=== PATIENT | female | born 1995 | race Caucasian/White ===

== ENCOUNTER 2018-10-31 17:53 | Emergency (ER) | payer MEDICARE, OTHER ==
[~2018-10-31] VITALS: Ht 165.1 cm; Wt 74.4 kg
[2018-10-31 18:08] VITALS: Ht 165.1 cm; Wt 74.4 kg
--- NOTE | 2018-10-31 19:17 | ERD ---
ER Documentation Chief Complaint Chief Complaint Bleeding AVF HPI The patient is a 23-year-old female, presenting to the ER because of bleeding formed left upper extremity AV fistula around 12 PM after she had dialysis about 11:30 AM. Leading was able to stop with compression. She thinks that her and may be too high because her INR is 4.3 a few days ago, she stopped the Coumadin for a few days and just restarted the medication. He complains of vague chronic headache, denies blurred vision syncope, near syncope, fever, neck pain, chest pain, dyspnea, abdominal pain, vomiting, dysuria, diarrhea. She does not smoke nor drink Medical history: Chronic kidney disease on hemodialysis, history of endocarditis, hypertension Past surgical history: Left upper extremity AV fistula, aortic valve replacement in 2015 ROS All systems reviewed and are negative except as per history of present illness. Allergies Allergies: Coded Allergies: promethazine (Verified Allergy, Unknown, 10/31/18) Physical Exam Vitals Vital Signs Date Temp Pulse Resp B/P (MAP) Pulse Ox O2 O2 Flow FiO2 Time Delivery Rate 10/31/18 97.1 88 16 147/89 99 Room Air 22:01 (108) 10/31/18 96.9 95 17 155/90 99 18:08 (111) Physical Exam Const: No acute distress. Head: Atraumatic. Eyes: Normal Conjunctiva. ENT: Normal External Ears, Nose and Mouth. Neck: Full range of motion. No meningismus. Resp: Clear to auscultation bilaterally. Cardio: Regular rate and rhythm. Abd: Soft, non distended, normal bowel sounds, non tender. Skin: No petechiae or rashes. Back: No midline or flank tenderness. Ext: No cyanosis, or edema. Minimal bleeding at the left upper ext remity AV fistula puncture wound Neur: Awake and alert. No focal deficit Psych: Normal Mood and Affect. Result Diagram: 10/31/18195410/31/181954 Results 24 hrs Laboratory Tests Test 10/31/18 19:55 White Blood Count 8.3 10^3/ul Red Blood Count 3.77 10^6/ul Hemoglobin 11.5 g/dl Hematocrit 34.9 % Mean Corpuscular Volume 92.6 fl Mean Corpuscular Hemoglobin 30.5 pg Mean Corpuscular Hemoglobin Concent 33.0 g/dl Red Cell Distribution Width 11.9 % Platelet Count 196 10^3/UL Mean Platelet Volume 11.0 fl Immature Granulocytes % 0.400 % Neutrophils % 69.0 % Lymphocytes % 20.9 % Monocytes % 7.5 % Eosinophils % 1.7 % Basophils % 0.5 % Nucleated Red Blood Cells % 0.0 /100WBC Immature Granulocytes # 0.030 10^3/ul Neutrophils # 5.7 10^3/ul Lymphocytes # 1.7 10^3/ul Monocytes # 0.6 10^3/ul Eosinophils # 0.1 10^3/ul Basophils # 0.0 10^3/ul Nucleated Red Blood Cells # 0.0 10^3/ul Prothrombin Time 31.2 Sec Prothrombin Time Ratio 2.4 INR International Normalized Ratio 3.00 Activated Partial Thromboplast Time 51.8 Sec Sodium Level 144 mmol/L Potassium Level 4.6 mmol/L Chloride Level 96 mmol/L Carbon Dioxide Level 33 mmol/L Anion Gap 15 Blood Urea Nitrogen 52 mg/dl Creatinine 8.67 mg/dl Est Glomerular Filtrat Rate mL/min 6 mL/min Glucose Level 84 mg/dl Calcium Level 9.6 mg/dl Current Medications Medications Dose Sig/Julianne Start Time Status Last (Trade) Ordered Route PRN Stop Time Admin Dose Reason Admin 650 mg ONCE ONCE 10/31/18 DC 10/31/18 Acetaminophen PO 20:30 10/31/18 20:21 (Tylenol 20:31 Tab) Procedures/MDM EKG: Read by emergency physician Rate/Rhythm: Normal Sinus Rhythm 76 beats/min QRS, ST, T-waves: No ST elevation, no T inversion, LAE, LAD, LVH, prolonged QT Impression: Abnormal EKG MEDICAL MAKING DECISION: The patient is a 23-year-old female, presenting with bleeding from the AV fistula, it was dressed with Surgicel and Coban without any difficulty, is stable outpatient follow-up. She was treated with Tylenol and p.o. for her chronic headache with good response The differential diagnoses considered include but are not limited to subarachnoid hemorrhage, occult trauma, CVA, meningitis, encephalitis, hypertension, tension, migraine, cluster, narcotic withdrawal, cervical spine disease. Departure Diagnosis: Primary Impression: Hemorrhage of arteriovenous fistula Additional Impression: Anemia Condition: Good Comments I discussed the findings with the patient. I advised the patient to follow-up with vascular surgeon for her bleeding AV fistula in about 2-3 days, sooner if needed and return if any concern. Disclaimer: Inadvertent spelling and grammatical errors are likely due to EHR/dictation software use and do not reflect on the overall quality of patient care. Also, please note that the electronic time recorded on this note does not necessarily reflect the actual time of the patient encounter. MIRANDA WATTS MD Oct 31, 2018 19:17
[2018-10-31] MEDS ORDERED: ACETAMINOPHEN 325 MG TAB PO ONE (20:30)
[2018-10-31 22:01] VITALS: BP 147/89; PULSE 88; RESP 16
== END 2018-10-31 22:01 | disposition home or self-care (01) ==
LOC: E/R 17:53
DX: T82.838A Hemorrhage due to vascular prosthetic devices, implants and grafts, initial encounter (principal); I12.9 Hypertensive chronic kidney disease with stage 1 through stage 4 chronic kidney disease, or unspecified chronic kidney disease; N18.9 Chronic kidney disease, unspecified; D64.9 Anemia, unspecified; Y82.9 Unspecified medical devices associated with adverse incidents; Z99.2 Dependence on renal dialysis
CPT/HCPCS: 80048; 85025; 85610; 85730; 93005

== ENCOUNTER 2018-12-12 19:37 | Emergency (ER) | payer MEDICARE, OTHER ==
[~2018-12-12] VITALS: Wt 76.9 kg
[2018-12-12] MEDS ORDERED: METOCLOPRAMIDE 10 MG INJ IV STA (21:06)
[2018-12-12] MEDS ORDERED: ACETAMINOPHEN 500 MG TAB PO STA (21:34)
[2018-12-12] MEDS ORDERED: DIPHENHYDRAMINE 25 MG CAP PO ONE (22:00)
[2018-12-12] MEDS ORDERED: PHYTONADIONE (1 MG/ML PO SYG) PO SCH (22:07)
[2018-12-12] MEDS ORDERED: CETI10CA PO (22:08)
--- NOTE | 2018-12-12 22:19 | ERD ---
ER Documentation Chief Complaint Chief Complaint VICKERS, BRUISING, RASH, BLEEDING FROM AV FISTULA HPI 23-year-old female with a history of aortic valve replacement and ESRD on hemodialysis presenting with complaints of bleeding from her AV fistula site on her left upper extremity. She also complains of a frontal aching headache as well as increased bruising all over her body. She states that she gets headaches like this and bruising when her INR is too high. She denies any vomiting or diarrhea. No fevers or chills. No neck stiffness. Headache was gradual in onset and she has felt headaches like this before. Currently her h eadache is an 8 out of 10. She has not tried any medications at home for this. She also complains of atraumatic right shoulder pain that has been going on for several days, worse with movement of her arm. No associated numbness or tingling in her arm. No associated neck pain. She rates the pain as a 9 out of 10. She describes it as throbbing and aching. ROS All systems reviewed and are negative except as per history of present illness. Medications Home Meds Reported Medications Warfarin Sodium* (Coumadin*) 1 Mg Tablet, 3 MG PO DAILY, TAB 12/14/18 Cinacalcet* (Sensipar*) 90 Mg Tablet, 90 MG PO DAILY, TAB 12/14/18 Amlodipine Besylate* (Norvasc*) 5 Mg Tablet, 5 MG PO BID, TAB 12/14/18 Trazodone Hcl* (Desyrel*) 50 Mg Tablet, 50 MG PO QHS, #30 TAB 12/14/18 Sevelamer Hcl* (Renagel*) 800 Mg Tablet, 3200 MG PO WITH MEALS, TAB 12/14/18 Discontinued Scripts Cetirizine Hcl* (Zyrtec*) 10 Mg Capsule, 10 MG PO DAILY, #14 TAB Prov:EDWINA SINGER MD 12/12/18 Allergies Allergies: Coded Allergies: promethazine (Verified Allergy, Unknown, 12/14/18) PMhx/Soc History of Surgery: Yes (Aortic valve replacement x2) Hx Cardiac Disorders: Yes (Artificial valve) Hx Miscellaneous Medical Probl: Yes (HTN, kidney problem since , CKD on hemodialysis) Hx Alcohol Use: No Hx Substance Use: No Hx Tobacco Use: No Smoking Status: Never smoker FmHx Family History: No diabetes Physical Exam Vitals Vital Signs Date Temp Pulse Resp B/P (MAP) Pulse Ox O2 O2 Flow FiO2 Time Delivery Rate 12/12/18 75 18 129/80 98 Room Air 22:20 (96) 12/12/18 99.1 80 18 140/77 99 19:42 (98) Physical Exam Const: No acute distress Head: Atraumatic Eyes: Normal Conjunctiva, PERRLA, EOMI ENT: Normal External Ears, Nose and Mouth. No oropharyngeal bleeding noted. Neck: Full range of motion. No meningismus. Resp: Clear to auscultation bilaterally Cardio: Regular rate and rhythm, no murmurs. 2+ radial pulses bilaterally. Abd: Soft, non tender, non distended. Normal bowel sounds Skin: Scattered bruises on body. No petechiae or rashes Back: No midline or flank tenderness Ext: No cyanosis, or edema. Left upper extremity AV fistula with no active bleeding at this time. Right shoulder with somewhat limited range of motion secondary to pain. No joint effusion or deformities seen. No evidence of shoulder dislocation. All other joints without any swelling, erythema, or warmth. Full range of motion at all joints. Neur: Awake and alert, cranial nerves intact, normal speech, oriented x3. Strength and sensations intact in all 4 extremities. Normal gait. Psych: Normal Mood and Affect Result Diagram: 12/12/18202912/12/182029 Results 24 hrs Laboratory Tests Test 12/12/18 20:30 12/12/18 21:11 White Blood Count 7.3 10^3/ul Red Blood Count 3.63 10^6/ul Hemoglobin 10.7 g/dl Hematocrit 33.3 % Mean Corpuscular Volume 91.7 fl Mean Corpuscular Hemoglobin 29.5 pg Mean Corpuscular Hemoglobin Concent 32.1 g/dl Red Cell Distribution Width 12.4 % Platelet Count 251 10^3/UL Mean Platelet Volume 10.8 fl Immature Granulocytes % 0.300 % Neutrophils % 70.2 % Lymphocytes % 19.4 % Monocytes % 7.0 % Eosinophils % 2.5 % Basophils % 0.6 % Nucleated Red Blood Cells % 0.0 /100WBC Immature Granulocytes # 0.020 10^3/ul Neutrophils # 5.1 10^3/ul Lymphocytes # 1.4 10^3/ul Monocytes # 0.5 10^3/ul Eosinophils # 0.2 10^3/ul Basophils # 0.0 10^3/ul Nucleated Red Blood Cells # 0.0 10^3/ul Prothrombin Time 63.3 Sec Prothrombin Time Ratio 4.9 INR International Normalized Ratio 7.48 Activated Partial Thromboplast Time 91.8 Sec Sodium Level 141 mmol/L Potassium Level 4.2 mmol/L Chloride Level 97 mmol/L Carbon Dioxide Level 33 mmol/L Anion Gap 11 Blood Urea Nitrogen 44 mg/dl Creatinine 8.15 mg/dl Est Glomerular Filtrat Rate mL/min 6 mL/min Glucose Level 104 mg/dl Calcium Level 10.2 mg/dl POC Beta HCG, Qualitative NEGATIVE Current Medications Medications Dose Sig/Julianne Start Time Status Last (Trade) Ordered Route PRN Stop Time Admin Dose Reason Admin 10 mg ONCE STAT 12/12/18 DC 12/12/18 Metoclopramid IV 21:06 21:18 e HCl 12/12/18 21:07 (Reglan) 1,000 mg ONCE STAT 12/12/18 DC 12/12/18 Acetaminophen PO 21:34 21:44 (Tylenol 12/12/18 21:35 Tab) 25 mg ONCE ONCE 12/12/18 DC 12/12/18 Diphenhydrami PO 22:00 21:44 ne HCl 12/12/18 22:01 (Benadryl) 2.5 mg ONCE PO 12/12/18 DC 12/12/18 Phytonadione 22:07 22:17 (Vitamin K) 12/12/18 22:35 Procedures/MDM EMERGENT LABS AND DIAGNOSTIC STUDIES: Lab Results above were reviewed and interpreted by me. CBC: Mild anemia, no evidence of infection, thrombocytopenia, or thrombocytosis CMP: Evidence of chronic kidney disease with elevated BUN and creatinine. No evidence of clinically significant electrolyte abnormality, acidosis, renal failure, liver disease, or biliary obstruction Coags: INR is supratherapeutic, PTT significantly high as well, indicative of coagulopathy Initial Nursing notes reviewed. Previous Medical Records requested via the Electronic Health Record. EMERGENCY DEPARTMENT COURSE / MEDICAL DECISION MAKING: Patient is presenting with multiple complaints including headache, bruising, ble eding from AV fistula site that has now resolved, as well as right shoulder pain. Vitals are stable and she is neurovascularly intact on exam. She has no signs of active bleeding on my exam. Her labs did show an elevated INR. I did not do a CT of her head as she was neurologically intact and she has experienced headaches like this before from an elevated INR. I have a lower suspicion for acute intracranial hemorrhage. With regard to her right shoulder pain, exam did not reveal any evidence of joint effusion or septic joint. I do not suspect fracture or infiltrative bone disease. I do not think x-rays are indicated. For her elevated INR, as she is not having any active bleeding, I recommended stopping her Coumadin for several days until she follows up with her mechanical door repairer to get a repeat INR. She was also treated with vitamin K 2.5 mg orally. Strict return precautions were discussed with patient. Precautions regarding her elevated INR were given. Recommended Tylenol for her pain at home. Patient feels comfortable with this discharge plan. She will follow-up as instructed. Patient's blood pressure was elevated (>120/80) but appears stable without evidence of hypertensive emergency or urgency. The patient was counseled about the risks of hypertension and urged to pursue outpatient monitoring and therapy within a week with their primary care physician. Departure Diagnosis: Primary Impression: Supratherapeutic international normalized ratio (INR) Additional Impressions: Hemorrhage of arteriovenous fistula Encounter type: initial encounter Qualified Codes: T82.838A - Hemorrhage due to vascular prosthetic devices, implants and grafts, initial encounter Headache Headache type: unspecified Headache chronicity pattern: acute headache Intractability: not intractable Qualified Codes: R51 - Headache Pruritic rash Nontraumatic pain of right shoulder Condition: Stable Patient Instructions: Self-Care for Headaches, Dermatitis, Non-Specific Additional Instructions: Your INR level is very high. Stop taking your Coumadin until you consult with your mechanical door repairer and obtain a repeat INR level in a few days. Return to the ER for any worsening symptoms or worsening bleeding. EDWINA SINGER MD Dec 12, 2018 22:19
[2018-12-12 22:20] VITALS: BP 129/80; PULSE 75; RESP 18
== END 2018-12-12 22:35 | disposition home or self-care (01) ==
LOC: E/R 19:37
DX: T82.838A Hemorrhage due to vascular prosthetic devices, implants and grafts, initial encounter (principal); R79.1 Abnormal coagulation profile; R51 Headache; L29.9 Pruritus, unspecified; M25.511 Pain in right shoulder; I12.9 Hypertensive chronic kidney disease with stage 1 through stage 4 chronic kidney disease, or unspecified chronic kidney disease; N18.9 Chronic kidney disease, unspecified; Y82.8 Other medical devices associated with adverse incidents; Z99.2 Dependence on renal dialysis
CPT/HCPCS: 36415; 80048; 81025; 85025; 85610; 85730; 96374; 99284; J2765; J3430

== ENCOUNTER 2018-12-14 10:02 | Emergency (ER) | payer MEDICARE, OTHER ==
[~2018-12-14] VITALS: Wt 73.0 kg
[~2018-12-14 10:02] MED LIST: CETI10CA PO
[2018-12-14] MEDS ORDERED: ONDANSETRON 4 MG INJ IV STA ×2 (10:17→12:40)
[2018-12-14] MEDS ORDERED: morphine 4 MG/ML VIAL IV STA (10:17)
[2018-12-14] MEDS ORDERED: SVL800C PO (11:40)
[2018-12-14] MEDS ORDERED: AMLO5TAB4 PO (11:41)
[2018-12-14] MEDS ORDERED: CINA90TA PO (11:41)
[2018-12-14] MEDS ORDERED: TRA50 PO (11:41)
[2018-12-14] MEDS ORDERED: WARF1TAB PO (11:42)
[2018-12-14] MEDS ORDERED: ALBUTEROL 0.5% (NEB) 2.5 MG/0.5 ML AMP INH STA (12:28)
[2018-12-14] MEDS ORDERED: SODIUM POLYSTYRENE 15 GM KIT (POWDER + SORBITOL) PO STA (12:28)
[2018-12-14] MEDS ORDERED: CA CHLORIDE 10% 10 ML SYRINGE IV STA (12:28)
[2018-12-14] MEDS ORDERED: NA BICARBONATE 8.4% 50 ML SYG IV STA (12:28)
[2018-12-14] MEDS ORDERED: ACETAMINOPHEN 325 MG TAB PO PRN (12:30)
[2018-12-14] MEDS ORDERED: ONDANSETRON 4 MG INJ IV PRN (12:30)
[2018-12-14] MEDS ORDERED: HYDROmorphONE 1 MG/ML SYG IV STA (12:40)
[2018-12-14] MEDS ORDERED: DIPHENHYDRAMINE 50 MG INJ IV ONE (13:00)
--- NOTE | 2018-12-14 14:49 | CONS ---
Assessment/Plan Assessment/Plan Hospital Course (Demo Recall) 23 yto female wtih ESRD and mechanical AV on coumadin who presents wtih bleeding from AV fistula - Bleeding is now resolved - INR slightly supratherapeutic but given absence of major bleeding I will hold off on reversal at this time - I have instructed the patient to hold coumadin until INR is checked at next HD session, then to reduce dose back to 2 mg - Patient can be discharged from the ED Consultation Date/Type/Reason Admit Date/Time Date/Time of Note DATE: 12/14/18 TIME: 14:43 Hx of Present Illness 23 yo female with h/o ESRD and mechanical AV on coumadin who presentes with bleeding from AV fistula Bleeding had been intermittent over past few days. Came to ED a few days ago and INR was 7. Given vitamin K. At HD session today hard to stop fistula from bleeding so session stopped and came back to the ED. Here pressure was held and bleedign stopped Patient states she has been taking a antibiotic prescribed for vaginitis. No other change to meds or dietary habits Constitutional: no complaints, improved Eyes: no complaints ENT: no complaints Respiratory: no complaints Cardiovascular: no complaints Gastrointestinal: no complaints Genitourinary: no complaints Musculoskeletal: no complaints Skin: no complaints Neurologic: no complaints Endocrine: no complaints Lymphatic: no complaints Psychological: no complaints, nl mood/affect Immunologic: no complaints Past Medical History Medical History: renal disease Home Meds Reported Medications Warfarin Sodium* (Coumadin*) 1 Mg Tablet, 3 MG PO DAILY, TAB 12/14/18 Cinacalcet* (Sensipar*) 90 Mg Tablet, 90 MG PO DAILY, TAB 12/14/18 Amlodipine Besylate* (Norvasc*) 5 Mg Tablet, 5 MG PO BID, TAB 12/14/18 Trazodone Hcl* (Desyrel*) 50 Mg Tablet, 50 MG PO QHS, #30 TAB 12/14/18 Sevelamer Hcl* (Renagel*) 800 Mg Tablet, 3200 MG PO WITH MEALS, TAB 12/14/18 Discontinued Scripts Cetirizine Hcl* (Zyrtec*) 10 Mg Capsule, 10 MG PO DAILY, #14 TAB Prov:EDWINA SINGER MD 12/12/18 Medications Current Medications Ondansetron HCl (Zofran Inj) 4 mg ER BRIDGE PRN IV NAUSEA/VOMITING; Start 12/14/18 at 12:30; Stop 12/15/18 at 12:29 Acetaminophen (Tylenol Tab) 650 mg ER BRIDGE PRN PO .MILD PAIN 1-3 OR TEMP; Start 12/14/18 at 12:30; Stop 12/15/18 at 12:29 Allergies: Coded Allergies: promethazine (Verified Allergy, Unknown, 12/14/18) Past Surgical History Mechanical AV Family History Significant Family History: no pertinent family hx Social History Alcohol Use: none Smoking Status: Never smoker Drug Use: none Exam/Review of Systems Exam Vitals Vital Signs Date Temp Pulse Resp B/P (MAP) Pulse Ox O2 O2 Flow FiO2 Time Delivery Rate 12/14/18 87 22 97 21 13:30 12/14/18 98.6 161/95 10:14 (117) Exam Appeasr well CTAB RRR LUE fistula wrapped, no active bleeding Ecchymosis of flank on L No edema Results Result Diagram: 12/14/18 1043 12/14/18 1039 Results 24hrs Laboratory Tests Test 12/14/18 10:39 12/14/18 10:43 Prothrombin Time 44.3 #H Prothrombin Time Ratio 3.5 INR International Normalized Ratio 4.72 Activated Partial Thromboplast Time 74.9 *H Sodium Level 137 Potassium Level 5.2 H Chloride Level 95 L Carbon Dioxide Level 28 Anion Gap 14 H Blood Urea Nitrogen 29 #H Creatinine 5.28 #H Est Glomerular Filtrat Rate mL/min 10 L Glucose Level 88 Calcium Level 10.7 H Total Bilirubin 0.4 Direct Bilirubin 0.00 Indirect Bilirubin 0.4 Aspartate Amino Transf (AST/SGOT) 34 Alanine Aminotransferase (ALT/SGPT) 9 L Alkaline Phosphatase 115 Troponin I 0.020 Total Protein 9.9 H Albumin 5.2 H Globulin 4.70 H Albumin/Globulin Ratio 1.10 Amylase Level 103 Lipase 180 Serum HCG, Qualitative NEGATIVE White Blood Count 7.4 Red Blood Count 3.59 L Hemoglobin 10.6 L Hematocrit 32.6 L Mean Corpuscular Volume 90.8 Mean Corpuscular Hemoglobin 29.5 Mean Corpuscular Hemoglobin Concent 32.5 Red Cell Distribution Width 12.5 Platelet Count 250 Mean Platelet Volume 11.3 H Immature Granulocytes % 0.300 Neutrophils % 66.7 Lymphocytes % 22.5 Monocytes % 8.0 Eosinophils % 2.0 Basophils % 0.5 Nucleated Red Blood Cells % 0.0 Immature Granulocytes # 0.020 Neutrophils # 4.9 Lymphocytes # 1.7 Monocytes # 0.6 Eosinophils # 0.2 Basophils # 0.0 Nucleated Red Blood Cells # 0.0 Medications Medication Current Medications Ondansetron HCl (Zofran Inj) 4 mg ER BRIDGE PRN IV NAUSEA/VOMITING; Start 12/14/18 at 12:30; Stop 12/15/18 at 12:29 Acetaminophen (Tylenol Tab) 650 mg ER BRIDGE PRN PO .MILD PAIN 1-3 OR TEMP; Start 12/14/18 at 12:30; Stop 12/15/18 at 12:29 SARITHA MUSA MD Dec 14, 2018 14:49
[2018-12-14 15:23] VITALS: BP 137/86; PULSE 102; RESP 17
--- NOTE | 2018-12-15 06:52 | ERD ---
ER Documentation Chief Complaint Chief Complaint bleeding fistula today. did not start dialysis. mild pain. controlled now HPI This is a 23-year-old female with a known history of end-stage renal disease on hemodialysis every Tuesday and Tuesday. The patient has a remote history of endocarditis several years prior to arrival status post aortic valve replacement. The patient indicated she had developed renal failure from bacteremia from Streptococcus. 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 Kaiser. The patient has a left AV fistula. She indicated that she was at her dialysis center today and roughly an hour and a half into the dialysis her fistula site started to bleed significantly and she was immediately transferred to the emergency department to be further evaluated. She indicates that she did have a full run of dialysis yesterday as an emergent session as she was complaining of difficulty in breathing. Her normal dialysis session runs for roughly 3-1/2 hours. She does not make any urine. She said no fevers or shaking or chills. She also complains of right shoulder pain. She gets right shoulder pain has been present for several weeks. She states the pain is exacerbated whenever she tries to move her right arm. She has right hand dominant but states she has had no trauma. She denies any chest pressure that radiates to the neck arm back or jaw. She had no shortness of breath at rest or exertion. She denies a headache or changes in vision. ROS All systems reviewed and are negative except as per history of present illness. Medications Home Meds Reported Medications Cinacalcet* (Sensipar*) 90 Mg Tablet, 90 MG PO DAILY, TAB 12/14/18 Amlodipine Besylate* (Norvasc*) 5 Mg Tablet, 5 MG PO BID, TAB 12/14/18 Trazodone Hcl* (Desyrel*) 50 Mg Tablet, 50 MG PO QHS, #30 TAB 12/14/18 Sevelamer Hcl* (Renagel*) 800 Mg Tablet, 3200 MG PO WITH MEALS, TAB 12/14/18 Discontinued Reported Medications Warfarin Sodium* (Coumadin*) 1 Mg Tablet, 3 MG PO DAILY, TAB 12/14/18 Discontinued Scripts Cetirizine Hcl* (Zyrtec*) 10 Mg Capsule, 10 MG PO DAILY, #14 TAB Prov:EDWINA SINGER MD 12/12/18 Allergies Allergies: Coded Allergies: promethazine (Verified Allergy, Unknown, 12/14/18) PMhx/Soc Hx Miscellaneous Medical Probl: Yes (HTN, kidney problem since , DIALYSIS) Hx Alcohol Use: No Hx Substance Use: No Hx Tobacco Use: No Smoking Status: Never smoker Physical Exam Vitals Vital Signs Date Temp Pulse Resp B/P (MAP) Pulse Ox O2 O2 Flow FiO2 Time Delivery Rate 12/14/18 102 17 137/86 98 Room Air 15:23 (103) 12/14/18 87 22 97 21 13:30 12/14/18 98.6 84 18 161/95 98 10:14 (117) Physical Exam Constitutional:Well-developed. Well-nourished. Patient tearful and appeared to be in a significant amount discomfort secondary to pain HEENT:Normocephalic. Atraumatic.Pupils were equal round reactive to light. Moist mucous membranes.No tonsillar exudates. Neck: No nuchal rigidity. No lymphadenopathy. No posterior cervical spine tenderness or step-offs. Respiratory: Not using accessory muscles of respiration.Lungs were clear to auscultation bilaterally. No rhonchi. No rales. No wheezing. Cardiovascular: Regular rate regular rhythm. Aortic valve click secondary to previous AVR. No rubs were appreciated.S1, S2 normal. Distal pulses are palpable 2+ bilaterally. GI: Abdomen was soft. Nontender. Non Distended. No pulsatile abdominal masses or bruits. No rebound. No guarding. Bowel sounds were present and normal. Muscle skeletal: Full range of motion of both the lower extremities. Patient was unable to abduct the right upper extremity past 45 degrees actively as this exacerbated pain. Tenderness of the right AC joint. Normal light to the right humeral head. Decreased internal rotation to spinal level L5 on the right compared to spinal level T4 on the left. Hand hardware installer equal and symmetrical bilaterally..Normal muscle tone.No assymetrical calf tenderness or swelling. Skin: No petechia, no purpura. No lesions on the palms or the soles of the feet. No maculopapular rash. Positive thrill and bruit of the left upper extremity AV fistula with blood oozing from 3 needle ports over the fistula site. NEURO: Patient was alert, awake, orientated x3.No facial droop. Gait observed and normal with no ataxia.Speech had regular rate and rhythm. No focal neurological deficits. Station intact over the ulnar radial and median nerve distribution as well as the axillary nerve at the right upper extremity. Result Diagram: 12/14/18 1043 12/14/18 1039 Results 24 hrs Laboratory Tests Test 12/14/18 10:39 12/14/18 10:43 Prothrombin Time 44.3 Sec Prothrombin Time Ratio 3.5 INR International Normalized Ratio 4.72 Activated Partial Thromboplast Time 74.9 Sec Sodium Level 137 mmol/L Potassium Level 5.2 mmol/L Chloride Level 95 mmol/L Carbon Dioxide Level 28 mmol/L Anion Gap 14 Blood Urea Nitrogen 29 mg/dl Creatinine 5.28 mg/dl Est Glomerular Filtrat Rate mL/min 10 mL/min Glucose Level 88 mg/dl Calcium Level 10.7 mg/dl Total Bilirubin 0.4 mg/dl Direct Bilirubin 0.00 mg/dl Indirect Bilirubin 0.4 mg/dl Aspartate Amino Transf (AST/SGOT) 34 IU/L Alanine Aminotransferase (ALT/SGPT) 9 IU/L Alkaline Phosphatase 115 IU/L Troponin I 0.020 ng/ml Total Protein 9.9 g/dl Albumin 5.2 g/dl Globulin 4.70 g/dl Albumin/Globulin Ratio 1.10 Amylase Level 103 U/L Lipase 180 U/L Serum HCG, Qualitative NEGATIVE White Blood Count 7.4 10^3/ul Red Blood Count 3.59 10^6/ul Hemoglobin 10.6 g/dl Hematocrit 32.6 % Mean Corpuscular Volume 90.8 fl Mean Corpuscular Hemoglobin 29.5 pg Mean Corpuscular Hemoglobin Concent 32.5 g/dl Red Cell Distribution Width 12.5 % Platelet Count 250 10^3/UL Mean Platelet Volume 11.3 fl Immature Granulocytes % 0.300 % Neutrophils % 66.7 % Lymphocytes % 22.5 % Monocytes % 8.0 % Eosinophils % 2.0 % Basophils % 0.5 % Nucleated Red Blood Cells % 0.0 /100WBC Immature Granulocytes # 0.020 10^3/ul Neutrophils # 4.9 10^3/ul Lymphocytes # 1.7 10^3/ul Monocytes # 0.6 10^3/ul Eosinophils # 0.2 10^3/ul Basophils # 0.0 10^3/ul Nucleated Red Blood Cells # 0.0 10^3/ul Current Medications Medications Dose Sig/Julianne Start Time Status Last (Trade) Ordered Route PRN Stop Time Admin Dose Reason Admin Morphine 4 mg ONCE STAT 12/14/18 DC 12/14/18 Sulfate IV 10:17 10:49 (morphine) 12/14/18 10:24 Ondansetron 4 mg ONCE STAT 12/14/18 DC 12/14/18 HCl (Zofran IV 10:17 10:49 Inj) 12/14/18 10:24 Ondansetron 4 mg ER BRIDGE 12/14/18 HCl (Zofran PRN IV 12:30 Inj) NAUSEA/VOMITI 12/15/18 12:29 NG 650 mg ER BRIDGE 12/14/18 Acetaminophen PRN PO 12:30 (Tylenol .MILD PAIN 12/15/18 12:29 Tab) 1-3 OR TEMP Sodium 30 gm ONCE STAT 12/14/18 DC 12/14/18 Polystyrene PO 12:28 12:50 Sulfonate 12/14/18 12:30 (Kayexelate 15 Gm Kit (Powder+Sorbi micky)) Albuterol 15 mg ONCE STAT 12/14/18 DC 12/14/18 (Proventil INH 12:28 13:23 0.5% (Neb)) 12/14/18 12:30 Sodium 50 ml ONCE STAT 12/14/18 DC 12/14/18 Bicarbonate IV 12:28 12:50 (Na Bicarb 12/14/18 12:30 8.4% Syg) Calcium 1,000 mg ONCE STAT 12/14/18 DC 12/14/18 Chloride IV 12:28 12:50 (Ca Chloride 12/14/18 12:31 10% Syg) 1 mg ONCE STAT 12/14/18 DC 12/14/18 Hydromorphone IV 12:40 12:50 HCl 12/14/18 12:41 (Dilaudid) Ondansetron 4 mg ONCE STAT 12/14/18 DC 12/14/18 HCl (Zofran IV 12:40 12:50 Inj) 12/14/18 12:41 50 mg ONCE ONCE 12/14/18 DC 12/14/18 Diphenhydrami IV 13:00 12:50 ne HCl 12/14/18 13:01 (Benadryl) Procedures/MDM Is a 23-year-old female presented to the emergency department with bleeding from her AV fistula. The patient was admitted placed on a youth nutritional monitor continuous pulse oximetry and IV access had been established by nursing staff. The patient also complained of right shoulder pain. This appeared to be muscle skeletal in origin with possible ligamentous injury but the patient denied any trauma. There is no evidence of compartment syndrome, necrotizing fasciitis or septic arthritis. A 2 view radiograph of the right shoulder have been ordered and reviewed by myself and there is no infiltrates no pneumothorax or pleural effusion. The patient had received IV Dilaudid for analgesic control as the patient again was very tearful and appeared to be in a significant amount discomfort secondary to the right shoulder pain. She received a second dose of opiates which completely resolved the right shoulder pain. Obtained a 12-lead EKG tracing which showed no peak T waves. 12 Lead EKG tracing ordered and reviewed by myself showed: Normal sinus rhythm of 82 bpm and no arrhythmia. CT interval normal. QRS duration normal. Incomplete right bundle branch block No ST segment elevation No ST segment depression. No changes consistent with acute ischemia. The patient was hyperkalemic with a potassium of 5.2 and treated with an amp of bicarb calcium chloride Kayexalate. Lasix was not given as the patient does not produce urine. The patient did have oozing over her AV fistula from the dialysis site. Under sterile conditions the patient had Surgicel placed over the oozing sites with an overlying pressure dressing and resolution of the bleeding. The patient tolerated the procedure well. The patient's PTT was 74.9. The patient's INR was within normal limits. She states she does not receive heparin during her dialysis. This will continue to be monitored upon admission. Chest radiograph was obtained and showed mild cardiomegaly and given that the patient had an elevation of her BUN and creatinine, elevated potassium, with incomplete dialysis today did feel she required admission for observation and further dialysis. Critical Care: Time: 65 minutes Treatments/Evaluations: Close monitoring and treatment of unstable vital signs, cardiorespiratory, and neurologic status, while maintaining tight balance of fluid, respiratory, and cardiac interventions. Time does not include performing any of the above billable procedures. Departure Diagnosis: Primary Impression: Nontraumatic pain of right shoulder Additional Impressions: Hyperkalemia Renal failure (ARF), acute on chronic Acute renal failure type: unspecified Chronic kidney disease stage: on chronic dialysis Qualified Codes: N17.9 - Acute kidney failure, unspecifie d; N18.9 - Chronic kidney disease, unspecified; Z99.2 - Dependence on renal dialysis Hemorrhage of arteriovenous fistula Encounter type: subsequent encounter Qualified Codes: T82.838D - Hemorrhage due to vascular prosthetic devices, implants and grafts, subsequent encounter Condition: Serious Patient Instructions: Dialysis Shunt (Fistula) Bleeding AHSAN DEL VALLE MD Dec 15, 2018 06:52
== END 2018-12-14 15:25 | disposition home or self-care (01) ==
LOC: E/R 10:02 → EDBEDREQSVC 13:41 → SUATTDRO 13:46 → CANBEDREQ 15:16 → E/R 15:25
PROVIDERS: ATTEND Internal Medicine
DX: T82.838D Hemorrhage due to vascular prosthetic devices, implants and grafts, subsequent encounter (principal); M25.511 Pain in right shoulder; E87.5 Hyperkalemia; N18.6 End stage renal disease; N17.9 Acute kidney failure, unspecified; I12.0 Hypertensive chronic kidney disease with stage 5 chronic kidney disease or end stage renal disease; Z99.2 Dependence on renal dialysis; Z79.01 Long term (current) use of anticoagulants; Y82.8 Other medical devices associated with adverse incidents
CPT/HCPCS: 71045; 73030; 80053; 82150; 83690; 84484; 84703; 85025; 85610; 85730; 93005; 94664; 96374; 96375; 96376; 99285; J1170; J1200; J2270; J2405

== ENCOUNTER 2018-12-17 08:48 | Inpatient (IN) | payer MEDICARE, OTHER ==
[~2018-12-17] VITALS: Ht 165.1 cm; Wt 75.8 kg
[~2018-12-17 08:48] MED LIST changes: +AMLO5TAB4 PO; -CETI10CA PO; +CINA90TA PO; +SVL800C PO; +TRA50 PO
[2018-12-17] MEDS ORDERED: HYDROmorphONE 1 MG/ML SYG IV STA (10:33)
[2018-12-17] MEDS ORDERED: ONDANSETRON 4 MG INJ IV STA (10:33)
--- NOTE | 2018-12-17 10:38 | ERD ---
ER Documentation Chief Complaint Chief Complaint right shoulder pain, bruising on skin, dialysis pt, on coumadin HPI This is a 23-year-old female who is here for right shoulder pain. The patient has been here twice this week 1 for elevated INR and the second 1 was for shoulder pain and bleeding from her fistula after dialysis. Patient's INR was above 7, the second time was about 4, she has not taken her Coumadin for the past 4 days. She is complaining of right shoulder plan it feels worse. She has a hard time moving her right shoulder due to pain there is no numbness weakness tingling no neck pain no headache. Pain is sharp and constant and worse with movement ROS All systems reviewed and are negative except as per history of present illness. Medications Home Meds Reported Medications Cinacalcet* (Sensipar*) 90 Mg Tablet, 90 MG PO DAILY, TAB 12/14/18 Amlodipine Besylate* (Norvasc*) 5 Mg Tablet, 5 MG PO BID, TAB 12/14/18 Trazodone Hcl* (Desyrel*) 50 Mg Tablet, 50 MG PO QHS, #30 TAB 12/14/18 Sevelamer Hcl* (Renagel*) 800 Mg Tablet, 3200 MG PO WITH MEALS, TAB 12/14/18 Discontinued Reported Medications Warfarin Sodium* (Coumadin*) 1 Mg Tablet, 3 MG PO DAILY, TAB 12/14/18 Discontinued Scripts Cetirizine Hcl* (Zyrtec*) 10 Mg Capsule, 10 MG PO DAILY, #14 TAB Prov:EDWINA SINGER MD 12/12/18 Allergies Allergies: Coded Allergies: promethazine (Verified Allergy, Unknown, 12/17/18) PMhx/Soc Hx Miscellaneous Medical Probl: Yes (HTN, kidney problem since , DIALYSIS) Hx Alcohol Use: No Hx Substance Use: No Hx Tobacco Use: No FmHx Family History: No coronary disease Physical Exam Vitals Vital Signs Date Temp Pulse Resp B/P (MAP) Pulse Ox O2 O2 Flow FiO2 Time Delivery Rate 12/17/18 98.7 83 18 143/81 99 08:51 (101) Physical Exam Const: Well-developed, well-nourished Head: Atraumatic, normocephalic Eyes: Normal Conjunctiva, PERRLA, EOMI, normal sclera, no nystagmus ENT: Normal External Ears, Nose and Mouth, moist mucus membranes. Neck: Full range of motion. No meningismus, no lymphadenopathy. Resp: Clear to auscultation bilaterally, no wheezing, rhonchi, rales Cardio: Regular rate and rhythm, no murmurs, S1 S2 present, loud metallic valve click is present Abd: Soft, non tender x 4, non distended. Normal bowel sounds, no guarding or rebound, no pulsitile abdominal masses or bruits Skin: No petechiae or rashes, no ecchymosis , no maculopapular rash Back: No midline or flank tenderness Ext: No cyanosis, or edema, FROM x 4, normal inspection, there is pain to the right shoulder with movement pain is tender in the anterior deltoid region. Patient has been limited range of motion due to severe pain neurovascularly intact x 4 Neur: Awake and alert, STR 5/5 x 4, sensation intact x 4, no focal findings, cerebellum intact Psych: Normal Mood and Affect Result Diagram: 12/17/18 1050 Results 24 hrs Laboratory Tests Test 12/17/18 10:50 12/17/18 10:51 Prothrombin Time 56.6 Sec Prothrombin Time Ratio 4.4 INR International Normalized Ratio 6.48 Activated Partial Thromboplast Time 132.9 Sec Sodium Level 140 mmol/L Potassium Level 5.1 mmol/L Chloride Level 94 mmol/L Carbon Dioxide Level 31 mmol/L Anion Gap 15 Blood Urea Nitrogen 51 mg/dl Creatinine 8.81 mg/dl Est Glomerular Filtrat Rate mL/min 6 mL/min Glucose Level 90 mg/dl Calcium Level 11.4 mg/dl White Blood Count Pending Red Blood Count Pending Hemoglobin Pending Hematocrit Pending Mean Corpuscular Volume Pending Mean Corpuscular Hemoglobin Pending Mean Corpuscular Hemoglobin Concent Pending Red Cell Distribution Width Pending Platelet Count Pending Mean Platelet Volume Pending Current Medications Medications Dose Sig/Julianne Start Time Status Last (Trade) Ordered Route PRN Stop Time Admin Dose Reason Admin 1 mg ONCE STAT 12/17/18 DC 12/17/18 Hydromorphone IV 10:33 10:59 HCl 12/17/18 10:37 (Dilaudid) Ondansetron 4 mg ONCE STAT 12/17/18 DC 12/17/18 HCl (Zofran IV 10:33 10:59 Inj) 12/17/18 10:37 1 mg ONCE STAT 12/17/18 DC 12/17/18 Hydromorphone IV 11:45 11:55 HCl 12/17/18 11:51 (Dilaudid) 25 mg ONCE ONCE 12/17/18 Diphenhydrami IV 12:30 ne HCl 12/17/18 12:31 (Benadryl) Procedures/MDM Ordering MD: LADONNA TODD DO Location: E/R Room/Bed: PROCEDURE: CT right shoulder without contrast. CLINICAL INDICATION: High INR, pain, hemarthrosis? TECHNIQUE: CT scan of the right shoulder was performed on a multi -slice scanner. No IV contrast was administered. Coronal and sagittal reformatted images were obtained from the axial source images. The total exam DLP equals 713 mGy-cm. The CDTI volume was 32 mGy. Images were reviewed on a high-resolution PACS workstation. DICOM images are available. One or more of the following dose reduction techniques were used: Automated exposure control Adjustment of the mA and/or kV according to patient size. Use of iterative reconstruction technique. COMPARISON: 12/14/2018 FINDINGS: There is no acute fracture or dislocation. The glenohumeral joint is intact. A prominent joint effusion is present with fluid of slightly increased density. There is suggestion of small subtle erosions within the humeral head. The acromioclavicular joint is intact. There is mild cortical irregularity of the distal clavicle. There is a type 2 acromion with slight lateral downsloping. The muscles around the shoulder are unremarkable without significant fatty atrophy. The visualized right ribs are intact. The visualized right lung is clear. There is fat stranding within the subcutaneous soft tissues within the anterior upper chest posterior to the clavicle. Several scattered small sub-centimeter shoddy lymph nodes are visualized in the supraclavicular region and axillary region. RPTAT: ZZ IMPRESSION: 1. No acute bony abnormality or bony destructive changes. 2. Prominent glenohumeral joint effusion with hyperdense fluid within the joint which can be seen with hemarthrosis or synovitis. Septic arthritis is not excluded. 3. Suggestion of small subtle erosions within the humeral head with mild cortical irregularity within the distal clavicle. Findings can be seen with inflammatory arthropathy although infection is not excluded. Distal clavicular osteolysis can also give this appearance within the distal clavicle. 4. Mild fat stranding within the subcutaneous soft tissues along the anterior upper chest wall posterior to the clavicle which may be from inflammation or contusion. .Paula Botello MD, Date Time Electronically viewed and signed by .Paula Botello MD, on 12/17/2018 11:30 .T/ CC: LADONNA TODD DO [id number] The patient appears to have hemarthrosis on her CAT scan. I do not suspect a se ptic joint however did send off a CBC and ESR. The patient is to be admitted to the hospital for uncontrolled INR and hemarthrosis and pain control. I did speak with Dr. Latham of orthopedics. He said he does not need to drain the joint because it will rebleed at the INR that it is. Will admit to panel for pain control and INR correction and Orth O consult later. Departure Diagnosis: Primary Impression: Hemarthrosis Additional Impression: Elevated INR Condition: Stable LADONNA TODD DO Dec 17, 2018 10:38
[2018-12-17] MEDS ORDERED: HYDROmorphONE 2 MG/ML SYG IV STA (11:45)
[2018-12-17] MEDS ORDERED: DIPHENHYDRAMINE 50 MG INJ IV ONE (12:30)
[2018-12-17] MEDS ORDERED: ONDANSETRON 4 MG INJ IV PRN (13:30)
[2018-12-17] MEDS ORDERED: HYDROCODONE/APAP (5/325) TAB PO PRN (13:30)
[2018-12-17] MEDS ORDERED: MAGNESIUM HYDROXIDE 30ML CUP PO PRN (13:30)
[2018-12-17] MEDS ORDERED: NACL 0.9% 3 ML SYG IV SCH (13:30)
[2018-12-17] MEDS ORDERED: ACETAMINOPHEN 325 MG TAB PO PRN ×2 (13:30)
--- NOTE | 2018-12-17 14:57 | HP ---
Date/Time of Note Date/Time of Note DATE: 12/17/18 TIME: 14:29 Assessment/Plan VTE Prophylaxis SCD applied (from Nsg): Yes Pharmacological prophylaxis: NA/contraindicated Pharm contraindication: other (elevated INR) Lines/Catheters IV Catheter Type (from Nrsg): [place] Assessment/Plan Assessment/Plan 1. Right shoulder effusion with hemarthrosis - CT right extremity shows "Prominent glenohumeral joint effusion with hyperdense fluid within the joint which can be seen with hemarthrosis or synovitis." Given patient elevated INR most likely hemarthrosis. Does not appear infectious in setting of nl WBC, afebrile, and joint not warm or erythematous - Ortho consulted for further evaluation by ED and not recommending surgical intervention at this time in setting of elevated INR - Pain control 2. Supratherapeutic INR - will give Vit K and monitor INR - goal 2.5- 3 given mechanical valve 3. ESRD on HD - T/T/S schedule - Nephrology consulted for HD management. Patient followed by Dr. Wakefield as outpatient 4. Anemia - blood loss vs renal disease - continue to monitor. no need for transfusions at this time 5. h/o AVR with mechanical valve - continue monitoring INR. Continue holding Coumadin given elevated INR and active bleeding into right shoulder joint 6. h/o strep endocarditis at age 13 7. Hypercalcemia - asymptomatic - management per Nephro 8. Diet - Renal 9. DVT ppx - SCD 10. Disposition - Admit for treatment of elevated INR with active bleeding. Once INR therapeutic and shoulder pain controlled, will d/c home Result Diagram: 12/17/18 1051 12/17/18 1050 Results 24hrs Laboratory Tests Test 12/17/18 10:50 12/17/18 10:51 Prothrombin Time 56.6 #H Prothrombin Time Ratio 4.4 INR International Normalized Ratio 6.48 *H Activated Partial Thromboplast Time 132.9 *H Sodium Level 140 Potassium Level 5.1 Chloride Level 94 L Carbon Dioxide Level 31 Anion Gap 15 H Blood Urea Nitrogen 51 H Creatinine 8.81 H Est Glomerular Filtrat Rate mL/min 6 L Glucose Level 90 Calcium Level 11.4 H White Blood Count 9.4 # Red Blood Count 3.22 L Hemoglobin 9.6 L Hematocrit 29.7 L Mean Corpuscular Volume 92.2 Mean Corpuscular Hemoglobin 29.8 Mean Corpuscular Hemoglobin Concent 32.3 Red Cell Distribution Width 12.4 Platelet Count 249 Mean Platelet Volume 11.0 H Immature Granulocytes % 0.200 Neutrophils % 71.9 Lymphocytes % 16.5 Monocytes % 9.0 Eosinophils % 2.2 Basophils % 0.2 Nucleated Red Blood Cells % 0.0 Immature Granulocytes # 0.020 Neutrophils # 6.7 Lymphocytes # 1.5 Monocytes # 0.8 Eosinophils # 0.2 Basophils # 0.0 Nucleated Red Blood Cells # 0.0 Erythrocyte Sedimentation Rate 66 H HPI/ROS Admit Date/Time Admit Date/Time Dec 17, 2018 at 13:06 Hx of Present Illness 23 yo F with PMH ESRD on HD and AVR with metallic valve on Coumadin presented to ED with worsening pain in right shoulder. Patient admits to waking up on Tuesday with severe pain in right shoulder area and denies any trauma or injury to the area. Patient was seen in the ED on 12/12 with noted bleeding for AV fistula site. She was sent home after given reversal for her elevated INR. Patient was again seen on 12/14 with bleeding from same site and Xray of Right shoulder were unremarkable. Patient has not taken her Coumadin over the past 4 days. Patient was found with an elevated INR in the ED of 6.48 and Imaging studies of R shoulder revealed an effusion with hemarthrosis. Ortho was consulted and did not recommend any emergent intervention due to elevated INR. Patient admits to having strep infection 4 years ago that lead to her renal failure. She underwent a renal transplant but body rejected transplant. Patient also has undergone 2 valve replacements and now on Coumadin for INR 2.5- 3. Patient denies any chest pain, shortness of breath, nausea, vomiting, abdominal discomfort, or urinary issues. ROS All 12 systems reviewed and pertinent positives as per HPI. All others negative. Constitutional: No chills, No fatigue, No nausea Eyes: No discharge ENT: No congestion Respiratory: No cough, No shortness of breath, No sputum, No wheezing Cardiovascular: No chest pain, No edema, No lightheadedness, No palpitations Gastrointestinal: No pain, No blood, No constipation, No diarrhea, No nausea, No vomiting Genitourinary: no complaints Musculoskeletal: bone/joint pain (right shoulder pain), restricted range of motion (Right shoulder) Skin: bruising, pruritis; No rash Neurologic: No confusion, No focal-weakness, No syncope Endocrine: no complaints Lymphatic: no complaints Psychological: nl mood/affect Immunologic: no complaints PMH/Family/Social Past Medical History Medical History: renal disease, other (AVR on Coumadin) Medications Current Medications Ondansetron HCl (Zofran Inj) 4 mg BRIDGE ORDER PRN IV NAUSEA/VOMITING; Start 12/17/18 at 13:30; Stop 12/18/18 at 13:29 Acetaminophen (Tylenol Tab) 650 mg ER BRIDGE PRN PO .MILD PAIN 1-3 OR TEMP; Start 12/17/18 at 13:30; Stop 12/18/18 at 13:29 Amlodipine Besylate (Norvasc) 5 mg BID PO ; Start 12/17/18 at 21:00 Cinacalcet (Sensipar) 90 mg DAILY PO ; Start 12/18/18 at 09:00 Sevelamer HCl (Renagel) 3,200 mg WITH MEALS PO ; Start 12/17/18 at 18:00 Trazodone HCl (Desyrel) 50 mg QHS PO ; Start 12/17/18 at 21:00 IV Flush (NS 3 ml) 3 ml PER PROTOCOL IV ; Start 12/17/18 at 13:30 Ondansetron HCl (Zofran Inj) 4 mg Q6H PRN IV NAUSEA/VOMITING; Start 12/17/18 at 13:30 Acetaminophen (Tylenol Tab) 650 mg Q6H PRN PO .PAIN 1-3 OR TEMP; Start 12/17/18 at 13:30 Acetaminophen/ Hydrocodone Bitart ([place] (5/325)) 1 tab Q6H PRN PO .MOD PAIN 4- 6; Start 12/17/18 at 13:30 Acetaminophen/ Hydrocodone Bitart ([place] (5/325)) 2 tab Q6H PRN PO .SEVERE PAIN 7-10; Start 12/17/18 at 13:30 Hydromorphone HCl (Dilaudid) 0.5 mg Q4H PRN IV .SEVERE PAIN 7-10; Start at 13:30 Docusate Sodium (Colace) 100 mg Q12H PRN PO .CONSTIPATION; Start 12/17/18 at 13:30 Magnesium Hydroxide (Milk Of Mag) 30 ml DAILY PRN PO .CONSTIPATION; Start 4/21/19 at 13:30 Phytonadione 10 mg/Dextrose 51 ml @ 102 mls/hr ONCE ONCE IVPB ; Start 12/17/18 at 15:00; Stop 12/17/18 at 15:29 Diphenhydramine HCl (Benadryl) 25 mg Q4 PRN IV itching; Start 12/17/18 at 14:30 Coded Allergies: promethazine (Verified Allergy, Unknown, 12/17/18) Past Surgical History Past Surgical Hx: other (AV fistula, renal transplant, AVRx2) Family History Significant Family History: no pertinent family hx Social History Alcohol Use: rarely Smoking Status: Never smoker Drug Use: none Exam/Review of Systems Vital Signs Vitals Vital Signs Date Temp Pulse Resp B/P (MAP) Pulse Ox O2 O2 Flow FiO2 Time Delivery Rate 12/17/18 98.7 89 16 116/72 100 Room Air 14:06 (87) Exam Exam General: Patient is a pleasant female, distress secondary to pain HEENT: Atraumatic, normocephalic. The pupils are equal, round and reactive. Extraocular motor are intact Neck: Supple with full range of motion. No rigidity or meningismus Chest: Nontender Lungs: Clear to auscultation bilaterally no crackles rales or wheezing Heart: Normal S1-S2, Regular rhythm and tachycardia. No murmur, S3, or S4 Abdomen: Soft , nontender, nondistended , bowel sounds are present. No guarding no rebound tenderness , No masses or organomegaly. No costovertebral temporal angle mass Extremities: swelling and tenderness right shoulder, diminished ROM. pulses intact. no douglas bleeding appreciate Neurologic: Normal mental status, speech normal, cranial nerves II through XII are intact, motor and sensory are intact, no focal deficits Skin: no skin lesions or rashes Additional Comments Home medications reviewed PROCEDURE: CT right shoulder without contrast. CLINICAL INDICATION: High INR, pain, hemarthrosis? TECHNIQUE: CT scan of the right shoulder was performed on a multi -slice scanner. No IV contrast was administered. Coronal and sagittal reformatted images were obtained from the axial source images. The total exam DLP equals 713 mGy-cm. The CDTI volume was 32 mGy. Images were reviewed on a high-resolution PACS workstation. DICOM images are available. One or more of the following dose reduction techniques were used: Automated exposure control Adjustment of the mA and/or kV according to patient size. Use of iterative reconstruction technique. COMPARISON: 12/14/2018 FINDINGS: There is no acute fracture or dislocation. The glenohumeral joint is intact. A prominent joint effusion is present with fluid of slightly increased density. There is suggestion of small subtle erosions within the humeral head. The acromioclavicular joint is intact. There is mild cortical irregularity of the distal clavicle. There is a type 2 acromion with slight lateral downsloping. The muscles around the shoulder are unremarkable without significant fatty atrop hy. The visualized right ribs are intact. The visualized right lung is clear. There is fat stranding within the subcutaneous soft tissues within the anterior upper chest posterior to the clavicle. Several scattered small sub-centimeter shoddy lymph nodes are visualized in the supraclavicular region and axillary region. RPTAT: ZZ IMPRESSION: 1. No acute bony abnormality or bony destructive changes. 2. Prominent glenohumeral joint effusion with hyperdense fluid within the joint which can be seen with hemarthrosis or synovitis. Septic arthritis is not excluded. 3. Suggestion of small subtle erosions within the humeral head with mild cortical irregularity within the distal clavicle. Findings can be seen with inflammatory arthropathy although infection is not excluded. Distal clavicular osteolysis can also give this appearance within the distal clavicle. 4. Mild fat stranding within the subcutaneous soft tissues along the anterior upper chest wall posterior to the clavicle which may be from inflammation or contusion. .Paula Botello MD, MD Date Time Electronically viewed and signed by .Paula Botello MD, on 12/17/2018 11:30 VALERI EAGLE MD Dec 17, 2018 14:43
[2018-12-17] MEDS ORDERED: PHYTONADIONE 10 MG in DEXTROSE 5% 50 ML IVPB ONE (15:00)
[2018-12-17] MEDS: HYDROCODONE/APAP (5/325) TAB PO PRN ×2 (15:03→22:14)
[2018-12-17 15:08] VITALS: BP 165/86; PULSE 84; RESP 16
[2018-12-17] MEDS: DIPHENHYDRAMINE 50 MG INJ IV PRN ×2 (16:16→22:15)
[2018-12-17] MEDS: HYDROmorphONE 0.5 MG/0.5 ML SYG IV PRN ×2 (17:57→22:14)
[2018-12-17] MEDS ORDERED: SEVELAMER 800 MG TAB PO SCH (18:00)
[2018-12-17 19:55] VITALS: BP 155/76; PULSE 77; RESP 18
[2018-12-17 20:00] VITALS: Ht 165.1 cm; Wt 75.8 kg
[2018-12-17] MEDS: AMLODIPINE 5 MG TAB PO SCH (22:13)
[2018-12-17] MEDS: traZODone 50 MG TAB PO SCH (22:14)
[2018-12-17] MEDS: SEVELAMER CARBONATE 0.8 GM PKT PO SCH (23:43)
[2018-12-17] MEDS: SEVELAMER CARBONATE 2.4 GM PKT PO SCH (23:43)
[2018-12-18 01:17] VITALS: BP 150/82; PULSE 78; RESP 18
[2018-12-18] MEDS: DIPHENHYDRAMINE 50 MG INJ IV PRN ×5 (03:05→22:06)
[2018-12-18] MEDS: HYDROmorphONE 0.5 MG/0.5 ML SYG IV PRN ×2 (03:05→08:24)
[2018-12-18] MEDS: HYDROCODONE/APAP (5/325) TAB PO PRN ×3 (03:05→10:53)
--- NOTE | 2018-12-18 08:00 | CONS ---
Assessment/Plan Assessment/Plan Problems: (1) ESRD on dialysis Comment: qTTS.. will arrange for tomorrow (2) S/P AVR (aortic valve replacement) Comment: w mechanical valve...was due to endocarditis in the past (3) HTN (hypertension) Comment: controlled (4) Hyperphosphatemia Comment: on Renvela... not well controlled as an outpt (5) Supratherapeutic international normalized ratio (INR) Status: Acute Comment: was given vit K, so re establishing therapeutic INR might be a challenge...await daily labs (6) Hemarthrosis Status: Acute Comment: will need PT and ortho f/u...quite painful w limited ROM... need to avoid adhesive capsulitis Consultation Date/Type/Reason Admit Date/Time Dec 17, 2018 at 13:06 Type of Consult Nephrology Date/Time of Note DATE: 12/18/18 TIME: 07:51 Hx of Present Illness Patient w ESRD on HD q TTS is admitted w spontaneous hemarthrosis Rt shoulder, assoc with elevated INR. She is s/p AVR x 2, has a mechanical valve and a prior failed transplant. She was given Vit K yesterday, and INR is now 1.57, down from 6.48. Constitutional: improved Eyes: no complaints ENT: no complaints Respiratory: no complaints Cardiovascular: no complaints Gastrointestinal: no complaints Genitourinary: no complaints Musculoskeletal: other (Rt sholder less sore with ice, but marked limited ROM due to pain.) Skin: no complaints Neurologic: no complaints Past Medical History Home Meds Reported Medications Cinacalcet* (Sensipar*) 90 Mg Tablet, 90 MG PO DAILY, TAB 12/14/18 Amlodipine Besylate* (Norvasc*) 5 Mg Tablet, 5 MG PO BID, TAB 12/14/18 Trazodone Hcl* (Desyrel*) 50 Mg Tablet, 50 MG PO QHS, #30 TAB 12/14/18 Sevelamer Hcl* (Renagel*) 800 Mg Tablet, 3200 MG PO WITH MEALS, TAB 12/14/18 Discontinued Reported Medications Warfarin Sodium* (Coumadin*) 1 Mg Tablet, 3 MG PO DAILY, TAB 12/14/18 Discontinued Scripts Cetirizine Hcl* (Zyrtec*) 10 Mg Capsule, 10 MG PO DAILY, #14 TAB Prov:EKMEKJIAN,NELLIE R. MD 12/12/18 Medications Current Medications Ondansetron HCl (Zofran Inj) 4 mg BRIDGE ORDER PRN IV NAUSEA/VOMITING; Start 12/17/18 at 13:30; Stop 12/18/18 at 13:29 Acetaminophen (Tylenol Tab) 650 mg ER BRIDGE PRN PO .MILD PAIN 1-3 OR TEMP; Start 12/17/18 at 13:30; Stop 12/18/18 at 13:29 Amlodipine Besylate (Norvasc) 5 mg BID PO Last administered on 12/17/18at 22:13; Admin Dose 5 MG; Start 12/17/18 at 21:00 Cinacalcet (Sensipar) 90 mg DAILY PO ; Start 12/18/18 at 09:00 Trazodone HCl (Desyrel) 50 mg QHS PO Last administered on 12/17/18at 22:14; Admin Dose 50 MG; Start 12/17/18 at 21:00 IV Flush (NS 3 ml) 3 ml PER PROTOCOL IV ; Start 12/17/18 at 13:30 Ondansetron HCl (Zofran Inj) 4 mg Q6H PRN IV NAUSEA/VOMITING; Start 12/17/18 at 13:30 Acetaminophen (Tylenol Tab) 650 mg Q6H PRN PO .PAIN 1-3 OR TEMP; Start 12/17/18 at 13:30 Acetaminophen/ Hydrocodone Bitart ([place] (5/325)) 1 tab Q6H PRN PO .MOD PAIN 4- 6; Start 12/17/18 at 13:30 Acetaminophen/ Hydrocodone Bitart ([place] (5/325)) 2 tab Q6H PRN PO .SEVERE PAIN 7-10 Last administered on 12/18/18at 04:20; Admin Dose 2 TAB; Start 12/17/18 at 13:30 Hydromorphone HCl (Dilaudid) 0.5 mg Q4H PRN IV .SEVERE PAIN 7-10 Last administered on 12/18/18at 03:05; Admin Dose 0.5 MG; Start 12/17/18 at 13:30 Docusate Sodium (Colace) 100 mg Q12H PRN PO .CONSTIPATION; Start 12/17/18 at 13:30 Magnesium Hydroxide (Milk Of Mag) 30 ml DAILY PRN PO .CONSTIPATION; Start 12/17/18 at 13:30 Diphenhydramine HCl (Benadryl) 25 mg Q4 PRN IV itching Last administered on 12/18/18at 03:05; Admin Dose 25 MG; Start 12/17/18 at 14:30 Sevelamer Carbonate (Renvela) 2.4 gm WITH MEALS PO Last administered on 12/17/18at 23:43; Admin Dose 2.4 GM; Start 12/17/18 at 23:30 Sevelamer Carbonate (Renvela) 0.8 gm WITH MEALS PO Last administered on 12/17/18at 23:43; Admin Dose 0.8 GM; Start 12/17/18 at 23:30 Allergies: Coded Allergies: promethazine (Verified Allergy, Unknown, 12/17/18) Past Surgical History Past Surgical Hx: other (AV fistula, renal transplant, AVRx2) Social History Alcohol Use: rarely Smoking Status: Never smoker Drug Use: none Exam/Review of Systems Vital Signs Vitals Vital Signs Date Temp Pulse Resp B/P (MAP) Pulse Ox O2 O2 Flow FiO2 Time Delivery Rate 12/18/18 98.5 78 18 150/82 97 01:17 (104) 12/17/18 Room Air 15:08 Intake and Output 12/17/18 12/17/18 12/18/18 1515:00 23:00 07:00 IntakeIntake Total 51 ml BalanceBalance 51 ml Exam Constitutional: alert, oriented Head: normocephalic Eyes: nl conjunctiva Neck: supple Respiratory: clear to auscultation Cardiovascular: regular rate and rhythm (valve click as before) Gastrointestinal: soft, nl liver, spleen Musculoskeletal: other (swollen Rt shoulder w ecchymosis posterior aspect...limited ROM due to pain...intact n/v tho... fxn AVF in LUE) Labs Result Diagram: 12/18/18 0506 12/18/18 0506 Results 24hrs Laboratory Tests Test 12/17/18 10:50 12/17/18 10:51 12/18/18 05:06 Prothrombin Time 56.6 #H 18.9 #H Prothrombin Time Ratio 4.4 1.5 INR International Normalized Ratio 6.48 *H 1.57 Activated Partial Thromboplast Time 132.9 *H Sodium Level 140 138 Potassium Level 5.1 5.0 Chloride Level 94 L 91 L Carbon Dioxide Level 31 33 H Anion Gap 15 H 14 H Blood Urea Nitrogen 51 H 65 H Creatinine 8.81 H 10.41 H Est Glomerular Filtrat Rate mL/min 6 L 5 L Glucose Level 90 76 Calcium Level 11.4 H 10.2 White Blood Count 9.4 # 7.5 # Red Blood Count 3.22 L 2.92 L Hemoglobin 9.6 L 8.6 L Hematocrit 29.7 L 27.0 L Mean Corpuscular Volume 92.2 92.5 Mean Corpuscular Hemoglobin 29.8 29.5 Mean Corpuscular Hemoglobin Concent 32.3 31.9 L Red Cell Distribution Width 12.4 12.4 Platelet Count 249 210 Mean Platelet Volume 11.0 H 11.0 H Immature Granulocytes % 0.200 0.300 Neutrophils % 71.9 55.8 Lymphocytes % 16.5 28.3 Monocytes % 9.0 10.4 Eosinophils % 2.2 4.7 Basophils % 0.2 0.5 Nucleated Red Blood Cells % 0.0 0.0 Immature Granulocytes # 0.020 0.020 Neutrophils # 6.7 4.2 Lymphocytes # 1.5 2.1 Monocytes # 0.8 0.8 Eosinophils # 0.2 0.4 Basophils # 0.0 0.0 Nucleated Red Blood Cells # 0.0 0.0 Erythrocyte Sedimentation Rate 66 H Magnesium Level 2.8 H Medications Medications Current Medications Ondansetron HCl (Zofran Inj) 4 mg BRIDGE ORDER PRN IV NAUSEA/VOMITING; Start 12/17/18 at 13:30; Stop 12/18/18 at 13:29 Acetaminophen (Tylenol Tab) 650 mg ER BRIDGE PRN PO .MILD PAIN 1-3 OR TEMP; Start 12/17/18 at 13:30; Stop 12/18/18 at 13:29 Amlodipine Besylate (Norvasc) 5 mg BID PO Last administered on 12/17/18at 22:13; Admin Dose 5 MG; Start 12/17/18 at 21:00 Cinacalcet (Sensipar) 90 mg DAILY PO ; Start 12/18/18 at 09:00 Trazodone HCl (Desyrel) 50 mg QHS PO Last administered on 12/17/18at 22:14; Admin Dose 50 MG; Start 12/17/18 at 21:00 IV Flush (NS 3 ml) 3 ml PER PROTOCOL IV ; Start 12/17/18 at 13:30 Ondansetron HCl (Zofran Inj) 4 mg Q6H PRN IV NAUSEA/VOMITING; Start 12/17/18 at 13:30 Acetaminophen (Tylenol Tab) 650 mg Q6H PRN PO .PAIN 1-3 OR TEMP; Start 12/17/18 at 13:30 Acetaminophen/ Hydrocodone Bitart ([place] (5/325)) 1 tab Q6H PRN PO .MOD PAIN 4- 6; Start 12/17/18 at 13:30 Acetaminophen/ Hydrocodone Bitart ([place] (5/325)) 2 tab Q6H PRN PO .SEVERE PAIN 7-10 Last administered on 12/18/18 04:20; Admin Dose 2 TAB; Start 12/17/18 at 13:30 Hydromorphone HCl (Dilaudid) 0.5 mg Q4H PRN IV .SEVERE PAIN 7-10 Last administered on 12/18/18 03:05; Admin Dose 0.5 MG; Start 12/17/18 at 13:30 Docusate Sodium (Colace) 100 mg Q12H PRN PO .CONSTIPATION; Start 12/17/18 at 13:30 Magnesium Hydroxide (Milk Of Mag) 30 ml DAILY PRN PO .CONSTIPATION; Start 12/17/18 at 13:30 Diphenhydramine HCl (Benadryl) 25 mg Q4 PRN IV itching Last administered on 12/18/18 03:05; Admin Dose 25 MG; Start 12/17/18 at 14:30 Sevelamer Carbonate (Renvela) 2.4 gm WITH MEALS PO Last administered on 12/17/18 23:43; Admin Dose 2.4 GM; Start 12/17/18 at 23:30 Sevelamer Carbonate (Renvela) 0.8 gm WITH MEALS PO Last administered on 12/17/18 23:43; Admin Dose 0.8 GM; Start 12/17/18 at 23:30 RU HAMMOND MD Dec 18, 2018 08:00
[2018-12-18 08:06] VITALS: BP 144/84; PULSE 69; RESP 16
[2018-12-18] MEDS: AMLODIPINE 5 MG TAB PO SCH ×2 (08:23→22:07)
[2018-12-18] MEDS: SEVELAMER CARBONATE 0.8 GM PKT PO SCH ×2 (08:24→12:00)
[2018-12-18] MEDS: SEVELAMER CARBONATE 2.4 GM PKT PO SCH ×2 (08:24→12:00)
[2018-12-18] MEDS: CINACALCET 30 MG TAB PO SCH (10:54)
--- NOTE | 2018-12-18 12:23 | PN ---
Date/Time of Note Date/Time of Note DATE: 12/18/18 TIME: 12:23 Objective Vitals Vital Signs Date Temp Pulse Resp B/P (MAP) Pulse Ox O2 O2 Flow FiO2 Time Delivery Rate 12/18/18 98.0 69 16 144/84 98 08:06 (104) 12/17/18 Room Air 15:08 Intake and Output 12/17/18 12/17/18 12/18/18 1515:00 23:00 07:00 IntakeIntake Total 51 ml BalanceBalance 51 ml Results Result Diagram: 12/18/18 0506 12/18/18 0506 Medications Medications Current Medications Ondansetron HCl (Zofran Inj) 4 mg BRIDGE ORDER PRN IV NAUSEA/VOMITING; Start 12/17/18 at 13:30; Stop 12/18/18 at 13:29 Acetaminophen (Tylenol Tab) 650 mg ER BRIDGE PRN PO .MILD PAIN 1-3 OR TEMP; Start 12/17/18 at 13:30; Stop 12/18/18 at 13:29 Amlodipine Besylate (Norvasc) 5 mg BID PO Last administered on 12/18/18at 08:23; Admin Dose 5 MG; Start 12/17/18 at 21:00 Cinacalcet (Sensipar) 90 mg DAILY PO Last administered on 12/18/18at 10:54; Admin Dose 90 MG; Start 12/18/18 at 09:00 Trazodone HCl (Desyrel) 50 mg QHS PO Last administered on 12/17/18at 22:14; Admin Dose 50 MG; Start 12/17/18 at 21:00 IV Flush (NS 3 ml) 3 ml PER PROTOCOL IV ; Start 12/17/18 at 13:30 Ondansetron HCl (Zofran Inj) 4 mg Q6H PRN IV NAUSEA/VOMITING; Start 12/17/18 at 13:30 Acetaminophen (Tylenol Tab) 650 mg Q6H PRN PO .PAIN 1-3 OR TEMP; Start 12/17/18 at 13:30 Acetaminophen/ Hydrocodone Bitart ([place] (5/325)) 1 tab Q6H PRN PO .MOD PAIN 4- 6; Start 12/17/18 at 13:30 Acetaminophen/ Hydrocodone Bitart ([place] (5/325)) 2 tab Q6H PRN PO .SEVERE PAIN 7-10 Last administered on 12/18/18 10:53; Admin Dose 2 TAB; Start 12/17/18 at 13:30 Hydromorphone HCl (Dilaudid) 0.5 mg Q4H PRN IV .SEVERE PAIN 7-10 Last administered on 12/18/18 08:24; Admin Dose 0.5 MG; Start 12/17/18 at 13:30 Docusate Sodium (Colace) 100 mg Q12H PRN PO .CONSTIPATION; Start 12/17/18 at 13:30 Magnesium Hydroxide (Milk Of Mag) 30 ml DAILY PRN PO .CONSTIPATION; Start 12/17/18 at 13:30 Diphenhydramine HCl (Benadryl) 25 mg Q4 PRN IV itching Last administered on 12/18/18 08:24; Admin Dose 25 MG; Start 12/17/18 at 14:30 Sevelamer Carbonate (Renvela) 2.4 gm WITH MEALS PO Last administered on 08:24; Admin Dose 2.4 GM; Start 12/17/18 at 23:30 Sevelamer Carbonate (Renvela) 0.8 gm WITH MEALS PO Last administered on 12/18/18 08:24; Admin Dose 0.8 GM; Start 12/17/18 at 23:30 VTE Prophylaxis Risk score (from Ns)>0 risk: 1 SCD applied (from Nsg): Yes SCD contraindication: other Lines/Catheters IV Catheter Type: Jiang in Place: No Assessment/Plan Hospital Course Subjective Patient still having severe pain in her right shoulder area limiting movement, patient denies any numbness or tingling or inability to move her right hand or fingers. Objective Physical exam General: Patient is laying in bed and answers questions appropriately Mentation: Patient is alert and oriented 4, Head: Normocephalic atraumatic Eyes: EOMI, pupils reactive to light Neck: Supple, nontender, midline Respiratory: Clear to auscultation bilaterally Cardiovascular: regular rate, metallic click heard Gastrointestinal: non-tender to palpation, bowel sounds heard. Neurological: Moves all extremities spontaneously Skin: Right shoulder mildly tender, not erythematous, not warm Assessment/Plan 1. Right shoulder effusion with hemarthrosis - CT right extremity shows "Prominent glenohumeral joint effusion with hyperdense fluid within the joint which can be seen with hemarthrosis or synovitis." Given patient elevated INR most likely hemarthrosis. Does not appear infectious in setting of nl WBC, afebrile, and joint not warm or erythematous - Ortho consulted for further evaluation by ED and not recommending surgical intervention at this time in setting of elevated INR - Pain control -Have attempted to reach out to orthopedic surgeon, awaiting callback, regarding further plans versus when we can restart Coumadin. 2. Supratherapeutic INR -Given vitamin K, INR is now subtherapeutic - goal 2.5- 3.5 given mechanical valve -We will need to ensure that the active bleeding in the shoulder has stopped before restarting Coumadin, will await for hemoglobin level tomorrow if stable will consider Coumadin as long as orthopedic surgeon is ok with restarting. 3. ESRD on HD - T/T/S schedule - Nephrology consulted for HD management. Patient followed by Dr. Wakefield as outpatient 4. Anemia - blood loss vs renal disease - continue to monitor. no need for transfusions at this time 5. h/o AVR with mechanical valve - continue monitoring INR. Continue holding Coumadin given active bleeding into right shoulder joint, will need to ensure active bleeding has stabilized before restarting Coumadin. -Patient will need to restart Coumadin as soon as possible given her risk of embolism with mechanical valve however due to active bleed will need to hold. 6. h/o strep endocarditis at age 13 7. Hypercalcemia - asymptomatic - management per Nephro 8. Diet - Renal 9. DVT ppx - SCD 10. Disposition -Shoulder pain has not improved -Orthopedic consult pending -We will need to closely monitor hemoglobin, once hemoglobin stable will consider restarting Coumadin. We will also get cardiology on board to help with Coumadin management SHEREE RODRIGUEZ Dec 18, 2018 12:23
[2018-12-18] MEDS: HYDROmorphONE 1 MG/ML SYG IV PRN ×3 (12:41→22:06)
--- NOTE | 2018-12-18 14:18 | RADRPT ---
Echocardiogram Report Patient Name: Jane DONAHUEnt ID: [id number] : 1995 (23y 9m)Study Date: 12/18/2018 1:19:02 PM Gender: FAccession #: [id number] Tech: Cal Muñoz [facility] Location: [address] Ref.Physician: SHEREE RODRIGUEZ Height(Cm): BSA: Weight(Kg): Quality: AdequateAccount #: Procedures: Echocardiographic Report: Transthoracic echocardiogram with complete 2D, M-Mode, and doppler examination. Indications: Aortic Valve Replacement. Measurements: 2D/M Mode Doppler Measurement Value Normal Range Measurement Value Normal Range LVIDd 2D 4.5 [ 3.8 - 5.2 ] cm AV Mean Vance 2.5 [ 70.0 - 90.0 ] cm/sec LVIDs 2D 3.2 [ 2.2 - 3.5 ] cm AV Mean PG 28.0 [ 2.0 - 4.0 ] mmHg LVPWd 2D 1.5 [ 0.6 - 0.9 ] cm AV VTI 81.0 cm IVSd 2D 1.8 [ 0.6 - 0.9 ] cm LVOT Peak Vance 1.0 [ 70.0 - 110.0 ] cm/sec AoR Diam 2D 2.6 [ 2.3 - 3.1 ] cm LVOT Peak PG 4.0 [ 2.0 - 6.0 ] mmHg EDV 2D 92.0 [ 46.0 - 106.0 ] ml MV E Peak Vance 1.6 [ 60.0 - 130.0 ] cm/sec ESV 2D 39.4 [ 14.0 - 42.0 ] ml MV A Peak Vance 1.0 [ 100.0 - 120.0 ] cm/sec EF 2D 57.2 [ 54.0 - 74.0 ] percent MV E/A 1.7 [ 0.8 - 1.5 ] ratio LA Dimen 2D 4.3 [ 2.7 - 3.8 ] cm MV Decel Time 165 [ 104 - 258 ] msec Lat E` Vance 0.1 [ 10.0 - 15.0 ] cm/sec Lateral E/E` 15.6 [ 1.0 - 2.0 ] ratio MV E/A 1.7 [ 0.8 - 1.5 ] ratio TR Peak Vance 2.8 [ 100.0 - 280.0 ] cm/sec TR Peak PG 31.0 mmHg RVSP 41.0 [ 10.0 - 36.0 ] mmHg Findings: Left Ventricle: Normal left ventricular systolic function. Normal left ventricular cavity size. Severe asymmetric septal hypertrophy. Ejection fraction is visually estimated at 55 %. Tissue Doppler/Mitral Doppler indices are consistent with pseudonormalization with mildly elevated left atrial pressure (Stage II diastolic dysfunction). Right Ventricle: Normal right ventricular size. Normal right ventricular systolic function. Left Atrium: There is mild enlargement of left atrium. Right Atrium: The right atrium is normal in size. Mitral Valve: Mild mitral leaflet calcification. Mild mitral annular calcification. Trace mitral regurgitation. Aortic Valve: Aortic Valve Mechanical Prosthesis. Aortic valve Max velocity 3.69 m/sec. Max PG 55.00 mmHg. Mean PG 28.00 mmHg. Tricuspid Valve: Normal appearance of the tricuspid valve. Estimated peak PA systolic pressure 41 mmHg. There is mild tricuspid regurgitation. Pericardium: Normal pericardium with no significant pericardial effusion. Aorta: Normal aortic root. IVC: Normal size with poor respiratory collapse consistent with elevated right atrial pressure. Conclusions: Normal left ventricular systolic function. Normal left ventricular cavity size. Severe asymmetric septal hypertrophy. Ejection fraction is visually estimated at 55 %. Tissue Doppler/Mitral Doppler indices are consistent with pseudonormalization with mildly elevated left atrial pressure (Stage II diastolic dysfunction). There is mild enlargement of left atrium. Mild mitral leaflet calcification. Mild mitral annular calcification. Trace mitral regurgitation. Aortic Valve Mechanical Prosthesis. Aortic valve Max velocity 3.69 m/sec. Max PG 55.00 mmHg. Mean PG 28.00 mmHg. Normal appearance of the tricuspid valve. Estimated peak PA systolic pressure 41 mmHg. There is mild tricuspid regurgitation. Electronically Signed By: David Sauer 2018-12-18 14:17:15 PDT
[2018-12-18 15:43] VITALS: BP 146/85; PULSE 94; RESP 20
--- NOTE | 2018-12-18 16:26 | CONS ---
Assessment/Plan Assessment/Plan Hospital Course (Demo Recall) 1. Status post mechanical aortic valve replacement 2. Supratherapeutic INR probably secondary to change in the Coumadin dose as well as interaction between the Coumadin and newly started antibiotic/antifungal medication 3. Hypertension 4. History of renal failure on dialysis 5. Anemia 6. Hematoma and AV fistula bleeding secondary to above Recommendations: Discussed with Dr. Rodriguez. We will hold off on Coumadin today for possible aspiration of the shoulder by Ortho Coumadin to be resumed tomorrow probably a 2 to 3 mg depends on the INR level. Hold off on antifungal medication unless absolutely needed due to the interaction between the Coumadin and Diflucan Hold off on giving any FFP less emergencies Currently aortic valve is functioning normally. We will continue to follow Thank you for his referral. We will continue to follow along with you DONG RODRIGUEZ MD [facility] Consultation Date/Type/Reason Admit Date/Time Dec 17, 2018 at 13:06 Date of Consultation: Dec 18, 2018 Type of Consult Cardiology Reason for Consultation S/P MECHANICAL AVR Requesting Provider: SHEREE RODRIGUEZ Date/Time of Note DATE: 12/18/18 TIME: 16:18 Hx of Present Illness Interventional cardiology consultation note Chief complaint: Right shoulder and left arm pain and bleeding Reason for consult: Status post mechanical aortic valve replacement on Coumadin History of present illness: Thank you for this referral. History was from the patient discussion position with staff. This is a pleasant 23-year-old female with history of mechanical aortic valve who came to the emergency room with complaint. Patient stated that she had Streptococcus infection at age 14 which caused her to go to renal failure. She is at age 16 she was noted to have endocarditis of her aortic valve and had a bioprosthetic aortic valve replacement done at that time. Apparently by the time she was 20 the valve was not working well anymore and she required to have a mechanical aortic valve replacement done. Clearly she had an aortic valve replaced with a mechanical aortic but has been on Coumadin since then. Patient stated that her Coumadin level was just increased about 2 weeks ago from 2 to 3 mg. 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 She has recently had bleeding on her hemodialysis axis on the left arm. She was seen in the emergency room was noted to have INR more than 8. Apparently bleeding has been stopped and she has held her Coumadin but she continues to have elevated INR more than 6 and came to emergency room with noted to have hematoma of the right shoulder. She has been given vitamin K and INR this morning is 1.57 She continues to have severe sharp right shoulder pain worse with any movement Allergies: Promethazine Medications were reviewed as per medical reconciliation sheet Family history: No history of any coronary artery disease Social history: Does not smoke or drink Past medical history: As above mentioned. History of renal failure on dialysis hypertension history o f aortic valve endocarditis status post aortic valve replacement Past surgical history: History of bioprosthetic aortic valve replacement age 16. History of mechanical aortic valve placement and age 20 AV fistula placement Review of system: Patient denies all others except for above-mentioned Past Medical History Home Meds Reported Medications Cinacalcet* (Sensipar*) 90 Mg Tablet, 90 MG PO DAILY, TAB 12/14/18 Amlodipine Besylate* (Norvasc*) 5 Mg Tablet, 5 MG PO BID, TAB 12/14/18 Trazodone Hcl* (Desyrel*) 50 Mg Tablet, 50 MG PO QHS, #30 TAB 12/14/18 Sevelamer Hcl* (Renagel*) 800 Mg Tablet, 3200 MG PO WITH MEALS, TAB 12/14/18 Discontinued Reported Medications Warfarin Sodium* (Coumadin*) 1 Mg Tablet, 3 MG PO DAILY, TAB 12/14/18 Discontinued Scripts Cetirizine Hcl* (Zyrtec*) 10 Mg Capsule, 10 MG PO DAILY, #14 TAB Prov:EDWINA SINGER MD 12/12/18 Medications Current Medications Amlodipine Besylate (Norvasc) 5 mg BID PO Last administered on 12/18/18at 08:23; Admin Dose 5 MG; Start 12/17/18 at 21:00 Cinacalcet (Sensipar) 90 mg DAILY PO Last administered on 12/18/18at 10:54; Admin Dose 90 MG; Start 12/18/18 at 09:00 Trazodone HCl (Desyrel) 50 mg QHS PO Last administered on 12/17/18at 22:14; Admin Dose 50 MG; Start 12/17/18 at 21:00 IV Flush (NS 3 ml) 3 ml PER PROTOCOL IV ; Start 12/17/18 at 13:30 Ondansetron HCl (Zofran Inj) 4 mg Q6H PRN IV NAUSEA/VOMITING; Start 12/17/18 at 13:30 Acetaminophen (Tylenol Tab) 650 mg Q6H PRN PO .PAIN 1-3 OR TEMP; Start 12/17/18 at 13:30 Docusate Sodium (Colace) 100 mg Q12H PRN PO .CONSTIPATION; Start 12/17/18 at 13:30 Magnesium Hydroxide (Milk Of Mag) 30 ml DAILY PRN PO .CONSTIPATION; Start 12/17/18 at 13:30 Diphenhydramine HCl (Benadryl) 25 mg Q4 PRN IV itching Last administered on 12/18/18at 13:00; Admin Dose 25 MG; Start 12/17/18 at 14:30 Hydromorphone HCl (Dilaudid) 1 mg Q4H PRN IV .SEVERE PAIN 7-10 Last administered on 12/18/18at 12:41; Admin Dose 1 MG; Start 12/18/18 at 13:30 Oxycodone/ Acetaminophen (Endocet (10/ 325)) 1 tab Q4H PRN PO MODERATE PAIN LEVEL 4-6; Start 12/18/18 at 12:30 Sevelamer Carbonate (Renvela) 3,200 mg WITH MEALS PO ; Start 12/18/18 at 18:00 Allergies: Coded Allergies: promethazine (Verified Allergy, Unknown, 12/17/18) Past Surgical History Past Surgical Hx: other (AV fistula, renal transplant, AVRx2) Social History Alcohol Use: rarely Smoking Status: Never smoker Drug Use: none Exam/Review of Systems Vital Signs Vitals Vital Signs Date Temp Pulse Resp B/P (MAP) Pulse Ox O2 O2 Flow FiO2 Time Delivery Rate 12/18/18 98.3 94 20 146/85 95 15:43 (105) 12/17/18 Room Air 15:08 Intake and Output 12/17/18 12/17/18 12/18/18 1414:59 22:59 06:59 IntakeIntake Total 51 ml BalanceBalance 51 ml Exam Exam General: no acute distress HEENT: NC/AT. pupils are equal. round. NECK: no stridor. CV: RRR. + Mechanical click . systolic murmur; no gallop or rubs. PULM: no wheezing or rhonchi. GI: SOFT, NT, ND, no rebound or guarding Extremity: Left upper extremity AV fistula. Right shoulder and tender but no active bleeding is noted neuro: awake and alert, OX3. Psych: calm and pleasant rectal: deferred : normal Echocardiogram was personally reviewed which shows: Normal left ventricular systolic function. Normal left ventricular cavity size. Severe asymmetric septal hypertrophy. Ejection fraction is visually estimated at 55 %. Tissue Doppler/Mitral Doppler indices are consistent with pseudonormalization with mildly elevated left atrial pressure (Stage II diastolic dysfunction). There is mild enlargement of left atrium. Mild mitral leaflet calcification. Mild mitral annular calcification. Trace mitral regurgitation. Aortic Valve Mechanical Prosthesis. Aortic valve Max velocity 3.69 m/sec. Max PG 55.00 mmHg. Mean PG 28.00 mmHg. Normal appearance of the tricuspid valve. Estimated peak PA systolic pressure 41 mmHg. There is mild tricuspid regurgitation. Labs Result Diagram: 12/18/18 0506 12/18/18 0506 Results 24hrs Laboratory Tests Test 12/18/18 05:06 White Blood Count 7.5 # Red Blood Count 2.92 L Hemoglobin 8.6 L Hematocrit 27.0 L Mean Corpuscular Volume 92.5 Mean Corpuscular Hemoglobin 29.5 Mean Corpuscular Hemoglobin Concent 31.9 L Red Cell Distribution Width 12.4 Platelet Count 210 Mean Platelet Volume 11.0 H Immature Granulocytes % 0.300 Neutrophils % 55.8 Lymphocytes % 28.3 Monocytes % 10.4 Eosinophils % 4.7 Basophils % 0.5 Nucleated Red Blood Cells % 0.0 Immature Granulocytes # 0.020 Neutrophils # 4.2 Lymphocytes # 2.1 Monocytes # 0.8 Eosinophils # 0.4 Basophils # 0.0 Nucleated Red Blood Cells # 0.0 Prothrombin Time 18.9 #H Prothrombin Time Ratio 1.5 INR International Normalized Ratio 1.57 Sodium Level 138 Potassium Level 5.0 Chloride Level 91 L Carbon Dioxide Level 33 H Anion Gap 14 H Blood Urea Nitrogen 65 H Creatinine 10.41 H Est Glomerular Filtrat Rate mL/min 5 L Glucose Level 76 Calcium Level 10.2 Magnesium Level 2.8 H Medications Medications Current Medications Amlodipine Besylate (Norvasc) 5 mg BID PO Last administered on 12/18/18at 08:23; Admin Dose 5 MG; Start 12/17/18 at 21:00 Cinacalcet (Sensipar) 90 mg DAILY PO Last administered on 12/18/18at 10:54; Admin Dose 90 MG; Start 12/18/18 at 09:00 Trazodone HCl (Desyrel) 50 mg QHS PO Last administered on 12/17/18at 22:14; Admin Dose 50 MG; Start 12/17/18 at 21:00 IV Flush (NS 3 ml) 3 ml PER PROTOCOL IV ; Start 12/17/18 at 13:30 Ondansetron HCl (Zofran Inj) 4 mg Q6H PRN IV NAUSEA/VOMITING; Start 12/17/18 at 13:30 Acetaminophen (Tylenol Tab) 650 mg Q6H PRN PO .PAIN 1-3 OR TEMP; Start 12/17/18 at 13:30 Docusate Sodium (Colace) 100 mg Q12H PRN PO .CONSTIPATION; Start 12/17/18 at 13:30 Magnesium Hydroxide (Milk Of Mag) 30 ml DAILY PRN PO .CONSTIPATION; Start 12/17/18 at 13:30 Diphenhydramine HCl (Benadryl) 25 mg Q4 PRN IV itching Last administered on 12/18/18at 13:00; Admin Dose 25 MG; Start 12/17/18 at 14:30 Hydromorphone HCl (Dilaudid) 1 mg Q4H PRN IV .SEVERE PAIN 7-10 Last administered on 12/18/18at 12:41; Admin Dose 1 MG; Start 12/18/18 at 13:30 Oxycodone/ Acetaminophen (Endocet (10/ 325)) 1 tab Q4H PRN PO MODERATE PAIN LEVEL 4-6; Start 12/18/18 at 12:30 Sevelamer Carbonate (Renvela) 3,200 mg WITH MEALS PO ; Start 12/18/18 at 18:00 DONG RODRIGUEZ MD Dec 18, 2018 16:26
[2018-12-18] MEDS: SEVELAMER CARBONATE 800 MG TABLET PO SCH (17:27)
[2018-12-18] MEDS: ONDANSETRON 4 MG INJ IV PRN (18:19)
[2018-12-18] MEDS ORDERED: BUPIVACAINE 0.5%/EPI (SDV) 30 ML INJ INJ ONE (19:00)
[2018-12-18 20:00] VITALS: BP 137/85; PULSE 76; RESP 20
[2018-12-18] MEDS: OXYCODONE/ACETAMINOPHEN (10/325) TAB PO PRN (22:07)
[2018-12-18] MEDS: traZODone 50 MG TAB PO SCH (22:08)
[2018-12-19] VITALS (19 sets, daily range): BP systolic 128–154; BP diastolic 70–91; PULSE 72–88; RESP 16–20
[2018-12-19] MEDS: OXYCODONE/ACETAMINOPHEN (10/325) TAB PO PRN ×4 (06:35→20:18)
[2018-12-19] MEDS: DOCUSATE SODIUM 100 MG CAP PO PRN ×2 (06:35→20:31)
--- NOTE | 2018-12-19 07:08 | CONS ---
DATE OF ADMISSION: 12/18/2018 DATE OF CONSULTATION: 12/18/2018 TYPE OF CONSULTATION: Orthopedic surgical HISTORY OF PRESENT ILLNESS: The patient is a 23-year-old female who was admitted on 12/17/2018 when she came to the Emergency Room complaining of pain involving her right shoulder. She was visiting ER this earlier in the week because of bleeding from the fistula site after dialysis. The INR at that time was 7. At the time of her admission on the 12/17/2018, INR was 6.48. The patient has been on C oumadin. Her pain involving right shoulder started about one week prior to her admission; however, s he denies any memorable trauma. PHYSICAL EXAMINATION: My examination revealed a 23-year-old female who does not appear to be in grea t pain. Inspection and palpation revealed mild swelling without any detectable distention of the aura nt itself. The passive range of motion was provoking some pain, but was fair. However, active range of motion could not be carried out because of the pain. There was no ecchymosis around the right sh oulder. There are no signs of any pyogenic process such as acute tenderness, increased warmth or red ness. CT scan of the right shoulder was showing effusion of the glenohumeral joint, most probably hemarthro sis. The laboratory study did not show any leukocytosis and the patient was afebrile. INR at the time of my examination was down to 1.57. MRI scan of the right shoulder could not be carried out because of the heart valve replacement that t his patient has. DIAGNOSTIC IMPRESSION: Mild to moderate hemarthrosis of the glenohumeral joint of the right shoulder with mild to moderate pain. RECOMMENDATIONS FOR MANAGEMENT: Before I actually see the patient and after reviewing the MRI scan, I felt that I may have to carry out the aspiration of the hematoma from glenohumeral joint. However, because of the physical findings, which does not show any excessive distention of the glenohumeral j oint. I felt that this patient does not need any aspiration at this time. Aspiration of the joint f ollowing hemarthrosis is to reduce the pain and discomfort from distention of the joint capsule with an intra-articular bleeding. However, her pain was not that extensive and the joint expansion is not severe enough to yield much fluid on aspiration. She can be observed closely with immobilization of the right shoulder in a sling along with some warm compress and observation. Dictated By: IFEANYI TOTH/KALEB Conf#: [id number] DID#: [id number] CC: VALERI EAGLE MD;*EndCC*
--- NOTE | 2018-12-19 07:56 | CONS ---
Assessment/Plan Assessment/Plan Problems: (1) Hemarthrosis Status: Acute Comment: seems a bit more comfortable today.. no aspiration per dr Latham...INR still pd this am (2) Elevated INR Status: Acute Comment: down to 1.57 yesterday after Vit K.. this am pd.. expect resume coumadin dosing today pd value (3) HTN (hypertension) Comment: well controlled (4) ESRD on dialysis Comment: for HD today, as per her TTS schedule (5) S/P AVR (aortic valve replacement) Comment: with nl fxn per Echo.. resume coumadin pd INR Consultation Date/Type/Reason Admit Date/Time Dec 17, 2018 at 13:06 Type of Consult Nephrology Date/Time of Note DATE: 12/19/18 TIME: 07:51 Hx of Present Illness comfortable at rest... appreciate consults by Kady Latham and Cristiane Exam/Review of Systems Vital Signs Vitals Vital Signs Date Temp Pulse Resp B/P (MAP) Pulse Ox O2 O2 Flow FiO2 Time Delivery Rate 12/19/18 98.7 74 20 142/75 95 02:00 (97) 12/17/18 Room Air 15:08 Intake and Output 12/18/18 12/18/18 12/19/18 1515:00 23:00 07:00 IntakeIntake Total 760 ml 320 ml BalanceBalance 760 ml 320 ml Exam Constitutional: alert, oriented Eyes: nl conjunctiva Neck: supple Respiratory: clear to auscultation Cardiovascular: regular rate and rhythm, other (crisp valve click as before) Gastrointestinal: soft, nl liver, spleen Extremities: other (fxn LUE AVF... Rt shoulder w min swelling as before...ROM limited by pain) Labs Result Diagram: 12/18/18 0506 12/18/18 0506 Medications Medications Current Medications Amlodipine Besylate (Norvasc) 5 mg BID PO Last administered on 12/18/18at 22:07; Admin Dose 5 MG; Start 12/17/18 at 21:00 Cinacalcet (Sensipar) 90 mg DAILY PO Last administered on 12/18/18at 10:54; Admin Dose 90 MG; Start 12/18/18 at 09:00 Trazodone HCl (Desyrel) 50 mg QHS PO Last administered on 12/18/18at 22:08; Admin Dose 50 MG; Start 12/17/18 at 21:00 IV Flush (NS 3 ml) 3 ml PER PROTOCOL IV ; Start 12/17/18 at 13:30 Ondansetron HCl (Zofran Inj) 4 mg Q6H PRN IV NAUSEA/VOMITING Last administered on 12/18/18at 18:19; Admin Dose 4 MG; Start 12/17/18 at 13:30 Acetaminophen (Tylenol Tab) 650 mg Q6H PRN PO .PAIN 1-3 OR TEMP; Start 12/17/18 at 13:30 Docusate Sodium (Colace) 100 mg Q12H PRN PO .CONSTIPATION Last administered on 12/19/18 06:35; Admin Dose 100 MG; Start 12/17/18 at 13:30 Magnesium Hydroxide (Milk Of Mag) 30 ml DAILY PRN PO .CONSTIPATION; Start 12/17/18 at 13:30 Diphenhydramine HCl (Benadryl) 25 mg Q4 PRN IV itching Last administered on 12/18/18at 22:06; Admin Dose 25 MG; Start 12/17/18 at 14:30 Hydromorphone HCl (Dilaudid) 1 mg Q4H PRN IV .SEVERE PAIN 7-10 Last administered on 12/18/18at 22:06; Admin Dose 1 MG; Start 12/18/18 at 13:30 Oxycodone/ Acetaminophen (Endocet (10/ 325)) 1 tab Q4H PRN PO MODERATE PAIN LEVEL 4-6 Last administered on 12/19/18 06:35; Admin Dose 1 TAB; Start 12/18/18 at 12:30 Sevelamer Carbonate (Renvela) 3,200 mg WITH MEALS PO Last administered on 12/18/18at 17:27; Admin Dose 3,200 MG; Start 12/18/18 at 18:00 RU HAMMOND MD Dec 19, 2018 07:56
[2018-12-19] MEDS: AMLODIPINE 5 MG TAB PO SCH ×2 (09:00→20:18)
[2018-12-19] MEDS: CINACALCET 30 MG TAB PO SCH (09:42)
[2018-12-19] MEDS: SEVELAMER CARBONATE 800 MG TABLET PO SCH ×3 (09:43→20:31)
--- NOTE | 2018-12-19 10:48 | PN ---
Date/Time of Note Date/Time of Note DATE: 12/19/18 TIME: 10:45 Objective Vitals Vital Signs Date Temp Pulse Resp B/P (MAP) Pulse Ox O2 O2 Flow FiO2 Time Delivery Rate 12/19/18 98.9 72 20 141/79 96 08:01 (99) 12/17/18 Room Air 15:08 Intake and Output 12/18/18 12/18/18 12/19/18 1515:00 23:00 07:00 IntakeIntake Total 760 ml 320 ml BalanceBalance 760 ml 320 ml Results Result Diagram: 12/19/1834 12/19/1834 Medications Medications Current Medications Amlodipine Besylate (Norvasc) 5 mg BID PO Last administered on 12/18/18at 22:07; Admin Dose 5 MG; Start 12/17/18 at 21:00 Cinacalcet (Sensipar) 90 mg DAILY PO Last administered on 12/19/18at 09:42; Admin Dose 90 MG; Start 12/18/18 at 09:00 Trazodone HCl (Desyrel) 50 mg QHS PO Last administered on 12/18/18at 22:08; Admin Dose 50 MG; Start 12/17/18 at 21:00 IV Flush (NS 3 ml) 3 ml PER PROTOCOL IV ; Start 12/17/18 at 13:30 Ondansetron HCl (Zofran Inj) 4 mg Q6H PRN IV NAUSEA/VOMITING Last administered on 12/18/18at 18:19; Admin Dose 4 MG; Start 12/17/18 at 13:30 Acetaminophen (Tylenol Tab) 650 mg Q6H PRN PO .PAIN 1-3 OR TEMP; Start 12/17/18 at 13:30 Docusate Sodium (Colace) 100 mg Q12H PRN PO .CONSTIPATION Last administered on 12/19/18at 06:35; Admin Dose 100 MG; Start 12/17/18 at 13:30 Magnesium Hydroxide (Milk Of Mag) 30 ml DAILY PRN PO .CONSTIPATION; Start 12/17/18 at 13:30 Diphenhydramine HCl (Benadryl) 25 mg Q4 PRN IV itching Last administered on 12/18/18at 22:06; Admin Dose 25 MG; Start 12/17/18 at 14:30 Hydromorphone HCl (Dilaudid) 1 mg Q4H PRN IV .SEVERE PAIN 7-10 Last administered on 12/18/18at 22:06; Admin Dose 1 MG; Start 12/18/18 at 13:30 Oxycodone/ Acetaminophen (Endocet (10/ 325)) 1 tab Q4H PRN PO MODERATE PAIN LEVEL 4-6 Last administered on 12/19/18at 06:35; Admin Dose 1 TAB; Start 12/18/18 at 12:30 Sevelamer Carbonate (Renvela) 3,200 mg WITH MEALS PO Last administered on 12/19/18at 09:43; Admin Dose 3,200 MG; Start 12/18/18 at 18:00 Warfarin Sodium (Coumadin) 3 mg ONCE@17 ONCE GTB ; Start 12/19/18 at 17:00; Stop 12/19/18 at 17:01 Warfarin Sodium (Coumadin) 2 mg DAILY@17 PO ; Start 12/20/18 at 17:00 VTE Prophylaxis Risk score (from Ns)>0 risk: 1 SCD applied (from [facility]): Yes Lines/Catheters IV Catheter Type: Jiang in Place: No Assessment/Plan Hospital Course Subjective Patient still having severe pain in her right shoulder area but has improved Objective Physical exam General: Patient is laying in bed and answers questions appropriately Mentation: Patient is alert and oriented 4, Head: Normocephalic atraumatic Eyes: EOMI, pupils reactive to light Neck: Supple, nontender, midline Respiratory: Clear to auscultation bilaterally Cardiovascular: regular rate, metallic click heard Gastrointestinal: non-tender to palpation, bowel sounds heard. Neurological: Moves all extremities spontaneously Skin: Right shoulder mildly tender, not erythematous, not warm Assessment/Plan 1. Right shoulder effusion with hemarthrosis - CT right extremity shows "Prominent glenohumeral joint effusion with hyperdense fluid within the joint which can be seen with hemarthrosis or synovitis." Given patient elevated INR most likely hemarthrosis. Does not appear infectious in setting of nl WBC, afebrile, and joint not warm or erythematous - Ortho consulted for further evaluation, saw patient, stated not a good candidate for aspiration due to likely low volume and improving symptoms. - Pain control - specialists doubt septic joint at this time, will closely monitor for signs of infection 2. Supratherapeutic INR -Given vitamin K, INR is now subtherapeutic - goal 2.5- 3.5 given mechanical valve -Cardiology recommends restarting Coumadin today at 3 mg and resume at 2 mg hayden orrow, they also recommend obtaining INR after each dialysis session at least for the short-term to ensure therapeutic levels, will need to reach out to patient's dispensing audiologist who manages patient's INR, awaiting callback. 3. ESRD on HD - T/T/S schedule - Nephrology consulted for HD management. Patient followed by Dr. Wakefield as outpatient 4. Anemia - blood loss vs renal disease - continue to monitor. no need for transfusions at this time 5. h/o AVR with mechanical valve -Restarting Coumadin today, cardiology feels bridging Coumadin with Lovenox or heparin at this time may be dangerous due to patient's current resolving bleed in the right shoulder, will restart Coumadin and titrate accordingly. 6. h/o strep endocarditis at age 13 7. Hypercalcemia - asymptomatic - management per Nephro 8. Diet - Renal 9. DVT ppx - SCD 10. Disposition -We will need to touch base with nephrology regarding follow-up with INR before DC, will observe 1 more night for pain control. Continue warfarin for now SHEREE RODRIGUEZ Dec 19, 2018 10:48
[2018-12-19] MEDS: DIPHENHYDRAMINE 50 MG INJ IV PRN ×2 (14:19→19:03)
[2018-12-19] MEDS ORDERED: LIDOCAINE 1% (MDV) 20 ML INJ INJ PRN (15:00)
[2018-12-19] MEDS ORDERED: WARFARIN 3 MG TAB GTB ONE (17:00)
--- NOTE | 2018-12-19 17:02 | CONS ---
Consult Date/Type/Reason Admit Date/Time Dec 18, 2018 at 11:54 Initial Consult Date 12/18/18 Type of Consultation: cv Requesting Provider: SHEREE RODRIGUEZ Date/Time of Note DATE: 12/19/18 TIME: 17:00 Subjective Cardiology follow-up progress note Subjective: Discussed with the staff. Discussed with Dr. Rodriguez. Patient is at hemodialysis She denies any bleeding today but is still complains of severe right shoulder pain Objective: General: no acute distress HEENT: NC/AT. pupils are equal. round. NECK: no stridor. CV: RRR. + Mechanical click . systolic murmur; no gallop or rubs. PULM: no wheezing or rhonchi. GI: SOFT, NT, ND, no rebound or guarding Extremity: Left upper extremity AV fistula. Right shoulder is tender but no active bleeding is noted neuro: awake and alert, OX3. Psych: calm and pleasant rectal: deferred : normal Echocardiogram was personally reviewed which shows: Normal left ventricular systolic function. Normal left ventricular cavity size. Severe asymmetric septal hypertrophy. Ejection fraction is visually estimated at 55 %. Tissue Doppler/Mitral Doppler indices are consistent with pseudonormalization with mildly elevated left atrial pressure (Stage II diastolic dysfunction). There is mild enlargement of left atrium. Mild mitral leaflet calcification. Mild mitral annular calcification. Trace mitral regurgitation. Aortic Valve Mechanical Prosthesis. Aortic valve Max velocity 3.69 m/sec. Max PG 55.00 mmHg. Mean PG 28.00 mmHg. Normal appearance of the tricuspid valve. Estimated peak PA systolic pressure 41 mmHg. There is mild tricuspid regurgitation. Objective Vitals Vital Signs Date Temp Pulse Resp B/P (MAP) Pulse Ox O2 O2 Flow FiO2 Time Delivery Rate 12/19/18 98.5 77 16 142/84 94 Room Air 14:20 (103) Intake and Output 12/18/18 12/18/18 12/19/18 1515:00 23:00 07:00 IntakeIntake Total 760 ml 320 ml BalanceBalance 760 ml 320 ml Results/Medications Result Diagram: 12/19/18 0734 12/19/18 0734 Results 24 hrs Laboratory Tests Test 12/19/18 07:34 White Blood Count 9.2 # Red Blood Count 2.73 L Hemoglobin 8.2 L Hematocrit 24.9 L Mean Corpuscular Volume 91.2 Mean Corpuscular Hemoglobin 30.0 Mean Corpuscular Hemoglobin Concent 32.9 Red Cell Distribution Width 12.2 Platelet Count 205 Mean Platelet Volume 10.8 H Immature Granulocytes % 0.300 Neutrophils % 68.4 Lymphocytes % 19.1 Monocytes % 8.9 Eosinophils % 3.0 Basophils % 0.3 Nucleated Red Blood Cells % 0.0 Immature Granulocytes # 0.030 Neutrophils # 6.3 Lymphocytes # 1.8 Monocytes # 0.8 Eosinophils # 0.3 Basophils # 0.0 Nucleated Red Blood Cells # 0.0 Prothrombin Time 18.1 H Prothrombin Time Ratio 1.4 INR International Normalized Ratio 1.49 Sodium Level 137 Potassium Level 5.2 H Chloride Level 92 L Carbon Dioxide Level 28 Anion Gap 17 H Blood Urea Nitrogen 82 H Creatinine 14.20 #H Est Glomerular Filtrat Rate mL/min 3 L Glucose Level 80 Calcium Level 9.2 Phosphorus Level 6.5 H Magnesium Level 2.9 H Hepatitis B Surface Antigen NEGATIVE Home Meds Reported Medications Cinacalcet* (Sensipar*) 90 Mg Tablet, 90 MG PO DAILY, TAB 12/14/18 Amlodipine Besylate* (Norvasc*) 5 Mg Tablet, 5 MG PO BID, TAB 12/14/18 Trazodone Hcl* (Desyrel*) 50 Mg Tablet, 50 MG PO QHS, #30 TAB 12/14/18 Sevelamer Hcl* (Renagel*) 800 Mg Tablet, 3200 MG PO WITH MEALS, TAB 12/14/18 Discontinued Reported Medications Warfarin Sodium* (Coumadin*) 1 Mg Tablet, 3 MG PO DAILY, TAB 12/14/18 Discontinued Scripts Cetirizine Hcl* (Zyrtec*) 10 Mg Capsule, 10 MG PO DAILY, #14 TAB Prov:EDWINA SINGER MD 12/12/18 Medications Current Medications Amlodipine Besylate (Norvasc) 5 mg BID PO Last administered on 12/18/18at 22:07; Admin Dose 5 MG; Start 12/17/18 at 21:00 Cinacalcet (Sensipar) 90 mg DAILY PO Last administered on 12/19/18at 09:42; Admin Dose 90 MG; Start 12/18/18 at 09:00 Trazodone HCl (Desyrel) 50 mg QHS PO Last administered on 12/18/18at 22:08; Admin Dose 50 MG; Start 12/17/18 at 21:00 IV Flush (NS 3 ml) 3 ml PER PROTOCOL IV ; Start 12/17/18 at 13:30 Ondansetron HCl (Zofran Inj) 4 mg Q6H PRN IV NAUSEA/VOMITING Last administered on 12/18/18at 18:19; Admin Dose 4 MG; Start 12/17/18 at 13:30 Acetaminophen (Tylenol Tab) 650 mg Q6H PRN PO .PAIN 1-3 OR TEMP; Start 12/17/18 at 13:30 Docusate Sodium (Colace) 100 mg Q12H PRN PO .CONSTIPATION Last administered on 12/19/18 06:35; Admin Dose 100 MG; Start 12/17/18 at 13:30 Magnesium Hydroxide (Milk Of Mag) 30 ml DAILY PRN PO .CONSTIPATION; Start 12/17/18 at 13:30 Diphenhydramine HCl (Benadryl) 25 mg Q4 PRN IV itching Last administered on 12/19/18 14:19; Admin Dose 25 MG; Start 12/17/18 at 14:30 Hydromorphone HCl (Dilaudid) 1 mg Q4H PRN IV .SEVERE PAIN 7-10 Last administered on 12/18/18at 22:06; Admin Dose 1 MG; Start 12/18/18 at 13:30 Oxycodone/ Acetaminophen (Endocet (10/ 325)) 1 tab Q4H PRN PO MODERATE PAIN LEVEL 4-6 Last administered on 12/19/18at 16:21; Admin Dose 1 TAB; Start 12/18/18 at 12:30 Sevelamer Carbonate (Renvela) 3,200 mg WITH MEALS PO Last administered on 12/19/18at 09:43; Admin Dose 3,200 MG; Start 12/18/18 at 18:00 Warfarin Sodium (Coumadin) 3 mg ONCE@17 ONCE GTB ; Start 12/19/18 at 17:00; Stop 12/19/18 at 17:01 Warfarin Sodium (Coumadin) 2 mg DAILY@17 PO ; Start 12/20/18 at 17:00 Lidocaine (Xylocaine 1% (Mdv) 20 ml) 1 ml WITH DIALYSIS PRN INJ PRIOR TO CANULLATION/HD Last administered on 12/19/18at 16:05; Admin Dose 1 ML; Start 12/19/18 at 15:00 Assessment/Plan Hospital Course (Demo Recall) 1. Status post mechanical aortic valve replacement 2. Supratherapeutic INR probably secondary to change in the Coumadin dose as well as interaction between the Coumadin and newly started antibiotic/antifungal medication 3. Hypertension 4. History of renal failure on dialysis 5. Anemia 6. Hematoma and AV fistula bleeding secondary to above Recommendations: Discussed with Dr. Rodriguez. will resume coumadin today since no procedure is planned. Hold off on antifungal medication unless absolutely needed due to the interaction between the Coumadin and Diflucan Hold off on giving any FFP unless emergencies Currently aortic valve is functioning normally. We will continue to follow Thank you for his referral. We will continue to follow along with you DONG RODRIGUEZ MD [facility] DONG RODRIGUEZ MD Dec 19, 2018 17:02
[2018-12-19] MEDS: HYDROmorphONE 1 MG/ML SYG IV PRN (20:17)
[2018-12-19] MEDS: traZODone 50 MG TAB PO SCH (20:18)
[2018-12-20] MEDS: OXYCODONE/ACETAMINOPHEN (10/325) TAB PO PRN ×3 (00:12→10:40)
[2018-12-20 01:18] VITALS: BP 164/78; PULSE 80; RESP 18
[2018-12-20] MEDS: DIPHENHYDRAMINE 50 MG INJ IV PRN ×2 (02:52→12:49)
[2018-12-20] MEDS: HYDROmorphONE 1 MG/ML SYG IV PRN (02:52)
[2018-12-20 07:41] VITALS: BP 138/86; PULSE 70; RESP 18
[2018-12-20] MEDS: SEVELAMER CARBONATE 800 MG TABLET PO SCH ×2 (08:00→11:57)
--- NOTE | 2018-12-20 08:18 | CONS ---
Consult Date/Type/Reason Admit Date/Time Dec 18, 2018 at 11:54 Initial Consult Date 12/18/18 Type of Consultation: cv Requesting Provider: SHEREE RODRIGUEZ Date/Time of Note DATE: 12/20/18 TIME: 08:16 Subjective Cardiology follow-up progress note Subjective: Discussed with the staff. She denies any bleeding today but is still complains of right shoulder pain. it appears to be improving Objective: General: no acute distress HEENT: NC/AT. pupils are equal. round. NECK: no stridor. CV: RRR. + Mechanical click . systolic murmur; no gallop or rubs. PULM: no wheezing or rhonchi. GI: SOFT, NT, ND, no rebound or guarding Extremity: Left upper extremity AV fistula. Right shoulder is tender but no active bleeding is noted neuro: awake and alert, OX3. Psych: calm and pleasant rectal: deferred : normal Echocardiogram was personally reviewed which shows: Normal left ventricular systolic function. Normal left ventricular cavity size. Severe asymmetric septal hypertrophy. Ejection fraction is visually estimated at 55 %. Tissue Doppler/Mitral Doppler indices are consistent with pseudonormalization with mildly elevated left atrial pressure (Stage II diastolic dysfunction). There is mild enlargement of left atrium. Mild mitral leaflet calcification. Mild mitral annular calcification. Trace mitral regurgitation. Aortic Valve Mechanical Prosthesis. Aortic valve Max velocity 3.69 m/sec. Max PG 55.00 mmHg. Mean PG 28.00 mmHg. Normal appearance of the tricuspid valve. Estimated peak PA systolic pressure 41 mmHg. There is mild tricuspid regurgitation. Objective Vitals Vital Signs Date Temp Pulse Resp B/P (MAP) Pulse Ox O2 O2 Flow FiO2 Time Delivery Rate 12/20/18 98.4 70 18 138/86 96 Room Air 07:41 (103) Intake and Output 12/19/18 12/19/18 12/20/18 1515:00 23:00 07:00 IntakeIntake Total 240 ml OutputOutput Total 4000 ml BalanceBalance -3760 ml Results/Medications Result Diagram: 12/20/18 0451 12/20/18 0451 Results 24 hrs Laboratory Tests Test 12/20/18 04:51 12/20/18 06:09 White Blood Count 7.8 Red Blood Count 3.65 #L Hemoglobin 10.8 #L Hematocrit 32.5 #L Mean Corpuscular Volume 89.0 Mean Corpuscular Hemoglobin 29.6 Mean Corpuscular Hemoglobin Concent 33.2 Red Cell Distribution Width 12.4 Platelet Count 206 Mean Platelet Volume 10.7 H Immature Granulocytes % 0.300 Neutrophils % 65.1 Lymphocytes % 20.6 Monocytes % 11.2 H Eosinophils % 2.4 Basophils % 0.4 Nucleated Red Blood Cells % 0.0 Immature Granulocytes # 0.020 Neutrophils # 5.1 Lymphocytes # 1.6 Monocytes # 0.9 Eosinophils # 0.2 Basophils # 0.0 Nucleated Red Blood Cells # 0.0 Prothrombin Time 19.5 H Prothrombin Time Ratio 1.5 INR International Normalized Ratio 1.64 Sodium Level 136 Potassium Level 5.1 Chloride Level 93 L Carbon Dioxide Level 31 Anion Gap 12 Blood Urea Nitrogen 46 #H Creatinine 8.74 #H Est Glomerular Filtrat Rate mL/min 6 L Glucose Level 85 Calcium Level 8.9 Phosphorus Level 6.5 H Magnesium Level 2.5 Lab Scanned Report BLOOD TRANSFUSION Home Meds Reported Medications Cinacalcet* (Sensipar*) 90 Mg Tablet, 90 MG PO DAILY, TAB 12/14/18 Amlodipine Besylate* (Norvasc*) 5 Mg Tablet, 5 MG PO BID, TAB 12/14/18 Trazodone Hcl* (Desyrel*) 50 Mg Tablet, 50 MG PO QHS, #30 TAB 12/14/18 Sevelamer Hcl* (Renagel*) 800 Mg Tablet, 3200 MG PO WITH MEALS, TAB 12/14/18 Discontinued Reported Medications Warfarin Sodium* (Coumadin*) 1 Mg Tablet, 3 MG PO DAILY, TAB 12/14/18 Discontinued Scripts Cetirizine Hcl* (Zyrtec*) 10 Mg Capsule, 10 MG PO DAILY, #14 TAB Prov:EDWINA SINGER MD 12/12/18 Medications Current Medications Amlodipine Besylate (Norvasc) 5 mg BID PO Last administered on 12/19/18at 20:18; Admin Dose 5 MG; Start 12/17/18 at 21:00 Cinacalcet (Sensipar) 90 mg DAILY PO Last administered on 12/19/18at 09:42; Admin Dose 90 MG; Start 12/18/18 at 09:00 Trazodone HCl (Desyrel) 50 mg QHS PO Last administered on 12/19/18at 20:18; Admin Dose 50 MG; Start 12/17/18 at 21:00 IV Flush (NS 3 ml) 3 ml PER PROTOCOL IV ; Start 12/17/18 at 13:30 Ondansetron HCl (Zofran Inj) 4 mg Q6H PRN IV NAUSEA/VOMITING Last administered on 12/18/18 18:19; Admin Dose 4 MG; Start 12/17/18 at 13:30 Acetaminophen (Tylenol Tab) 650 mg Q6H PRN PO .PAIN 1-3 OR TEMP; Start 12/17/18 at 13:30 Docusate Sodium (Colace) 100 mg Q12H PRN PO .CONSTIPATION Last administered on 12/19/18 20:31; Admin Dose 100 MG; Start 12/17/18 at 13:30 Magnesium Hydroxide (Milk Of Mag) 30 ml DAILY PRN PO .CONSTIPATION; Start 12/17/18 at 13:30 Diphenhydramine HCl (Benadryl) 25 mg Q4 PRN IV itching Last administered on 12/20/18 02:52; Admin Dose 25 MG; Start 12/17/18 at 14:30 Hydromorphone HCl (Dilaudid) 1 mg Q4H PRN IV .SEVERE PAIN 7-10 Last administered on 12/20/18 02:52; Admin Dose 1 MG; Start 12/18/18 at 13:30 Oxycodone/ Acetaminophen (Endocet (10/ 325)) 1 tab Q4H PRN PO MODERATE PAIN LEVEL 4-6 Last administered on 12/20/18 06:43; Admin Dose 1 TAB; Start 12/18/18 at 12:30 Sevelamer Carbonate (Renvela) 3,200 mg WITH MEALS PO Last administered on 12/19/18 20:31; Admin Dose 3,200 MG; Start 12/18/18 at 18:00 Warfarin Sodium (Coumadin) 2 mg DAILY@17 PO ; Start 12/20/18 at 17:00 Lidocaine (Xylocaine 1% (Mdv) 20 ml) 1 ml WITH DIALYSIS PRN INJ PRIOR TO CANULLATION/HD Last administered on 12/19/18 16:05; Admin Dose 1 ML; Start 12/19/18 at 15:00 Assessment/Plan Hospital Course (Demo Recall) 1. Status post mechanical aortic valve replacement 2. Supratherapeutic INR probably secondary to change in the Coumadin dose as well as interaction between the Coumadin and newly started antibiotic/antifungal medication 3. Hypertension 4. History of renal failure on dialysis 5. Anemia 6. Hematoma and AV fistula bleeding secondary to above Recommendations: coumadin 2mg po daily to be adjusted as outpt Hold off on antifungal medication unless absolutely needed due to the interaction between the Coumadin and Diflucan Currently aortic valve is functioning normally. Patient has been given my information to contact my office on a scheduled outpatient follow-up Okay for discharge from cardiac standpoint. INR needs to be adjusted as an outpatient by her primary care/supervisor reactor fueling Thank you for his referral. DONG RODRIGUEZ MD [facility] DONG RODRIGUEZ MD Dec 20, 2018 08:17
--- NOTE | 2018-12-20 08:36 | CONS ---
Assessment/Plan Assessment/Plan Assessment/Plan (Daily) 1. CKD, with next HD tomm 2. Hemarthrosis right shoulder 3. A valve prosthesis Consultation Date/Type/Reason Admit Date/Time Dec 18, 2018 at 11:54 Initial Consult Date 12/18/18 Requesting Provider: SHEREE RODRIGUEZ Date/Time of Note DATE: 12/20/18 TIME: 08:34 Detailed Summary Respiratory: No cough, No shortness of breath Cardiovascular: no complaints Gastrointestinal: no complaints Genitourinary: no complaints Musculoskeletal: other (right shoulder pain is unchanged) Exam/Review of Systems Exam Vitals Vital Signs Date Temp Pulse Resp B/P (MAP) Pulse Ox O2 O2 Flow FiO2 Time Delivery Rate 12/20/18 98.4 70 18 138/86 96 Room Air 07:41 (103) Intake and Output 12/19/18 12/19/18 12/20/18 1515:00 23:00 07:00 IntakeIntake Total 240 ml OutputOutput Total 4000 ml BalanceBalance -3760 ml Neck: No jvd Respiratory: clear to auscultation Cardiovascular: other (prosthetic hs) Gastrointestinal: soft Musculoskeletal: joint tenderness (right shoulder and swelling) Extremities: No edema Results Result Diagram: 12/20/18 0451 12/20/18 0451 Results 24hrs Laboratory Tests Test 12/20/18 04:51 12/20/18 06:09 White Blood Count 7.8 Red Blood Count 3.65 #L Hemoglobin 10.8 #L Hematocrit 32.5 #L Mean Corpuscular Volume 89.0 Mean Corpuscular Hemoglobin 29.6 Mean Corpuscular Hemoglobin Concent 33.2 Red Cell Distribution Width 12.4 Platelet Count 206 Mean Platelet Volume 10.7 H Immature Granulocytes % 0.300 Neutrophils % 65.1 Lymphocytes % 20.6 Monocytes % 11.2 H Eosinophils % 2.4 Basophils % 0.4 Nucleated Red Blood Cells % 0.0 Immature Granulocytes # 0.020 Neutrophils # 5.1 Lymphocytes # 1.6 Monocytes # 0.9 Eosinophils # 0.2 Basophils # 0.0 Nucleated Red Blood Cells # 0.0 Prothrombin Time 19.5 H Prothrombin Time Ratio 1.5 INR International Normalized Ratio 1.64 Sodium Level 136 Potassium Level 5.1 Chloride Level 93 L Carbon Dioxide Level 31 Anion Gap 12 Blood Urea Nitrogen 46 #H Creatinine 8.74 #H Est Glomerular Filtrat Rate mL/min 6 L Glucose Level 85 Calcium Level 8.9 Phosphorus Level 6.5 H Magnesium Level 2.5 Lab Scanned Report BLOOD TRANSFUSION Medications Medication Current Medications Amlodipine Besylate (Norvasc) 5 mg BID PO Last administered on 12/19/18 20:18; Admin Dose 5 MG; Start 12/17/18 at 21:00 Cinacalcet (Sensipar) 90 mg DAILY PO Last administered on 12/19/18 09:42; Admin Dose 90 MG; Start 12/18/18 at 09:00 Trazodone HCl (Desyrel) 50 mg QHS PO Last administered on 12/19/18 20:18; Admin Dose 50 MG; Start 12/17/18 at 21:00 IV Flush (NS 3 ml) 3 ml PER PROTOCOL IV ; Start 12/17/18 at 13:30 Ondansetron HCl (Zofran Inj) 4 mg Q6H PRN IV NAUSEA/VOMITING Last administered on 12/18/18 18:19; Admin Dose 4 MG; Start 12/17/18 at 13:30 Acetaminophen (Tylenol Tab) 650 mg Q6H PRN PO .PAIN 1-3 OR TEMP; Start 12/17/18 at 13:30 Docusate Sodium (Colace) 100 mg Q12H PRN PO .CONSTIPATION Last administered on 12/19/18 20:31; Admin Dose 100 MG; Start 12/17/18 at 13:30 Magnesium Hydroxide (Milk Of Mag) 30 ml DAILY PRN PO .CONSTIPATION; Start 12/17/18 at 13:30 Diphenhydramine HCl (Benadryl) 25 mg Q4 PRN IV itching Last administered on 12/20/18 02:52; Admin Dose 25 MG; Start 12/17/18 at 14:30 Hydromorphone HCl (Dilaudid) 1 mg Q4H PRN IV .SEVERE PAIN 7-10 Last administered on 12/20/18 02:52; Admin Dose 1 MG; Start 12/18/18 at 13:30 Oxycodone/ Acetaminophen (Endocet (10/ 325)) 1 tab Q4H PRN PO MODERATE PAIN LEVEL 4-6 Last administered on 12/20/18 06:43; Admin Dose 1 TAB; Start 12/18/18 at 12:30 Sevelamer Carbonate (Renvela) 3,200 mg WITH MEALS PO Last administered on 12/19/18at 20:31; Admin Dose 3,200 MG; Start 12/18/18 at 18:00 Warfarin Sodium (Coumadin) 2 mg DAILY@17 PO ; Start 12/20/18 at 17:00 Lidocaine (Xylocaine 1% (Mdv) 20 ml) 1 ml WITH DIALYSIS PRN INJ PRIOR TO CANULLATION/HD Last administered on 12/19/18at 16:05; Admin Dose 1 ML; Start 12/19/18 at 15:00 Warfarin Sodium (Coumadin) 2 mg DAILY@17 PO ; Start 12/20/18 at 17:00; Status UNV JEREMY VIRGEN MD Dec 20, 2018 08:35
[2018-12-20] MEDS: CINACALCET 30 MG TAB PO SCH (09:35)
[2018-12-20] MEDS: AMLODIPINE 5 MG TAB PO SCH (09:38)
[2018-12-20] MEDS ORDERED: COU2 PO (10:54)
[2018-12-20] MEDS ORDERED: OXYC-431 PO (10:54)
--- NOTE | 2018-12-20 11:07 | DS ---
Date/Time of Note Date/Time of Note DATE: 12/20/18 TIME: 11:07 Discharge Summary Admission/Discharge Info Admit Date/Time Dec 18, 2018 at 11:54 Discharge Date/Time Patient Condition: Stable Hospital Course Patient is a female with a past medical history significant for end- stage renal disease on hemodialysis as well as aortic valve replacement with mechanical valve who presents to [facility] for shoulder pain. Patient was diagnosed with right shoulder effusion with hemarthrosis secondary to supratherapeutic INR. Patient was seen by orthopedic surgery, cardiology, and her outpatient husbandry technician. Orthopedic surgery deemed patient's effusion to be very small and will likely heal on its own, patient was monitored in the inpatient setting and continued to improve every single day. Cardiology and nephrology also saw patient regarding her hemodialysis and supratherapeutic INR. Patient's INR was reversed initially with vitamin K and once stable cardiology reinitiated warfarin therapy. We discussed with cardiology and it was decided that bridging with heparin over Lovenox will likely not be a good idea at this time due to patient having a complication of bleed in the shoulder area causing extreme pain, patient will be continued on a previous dose of warfarin to follow-up with her husbandry technician outpatient. I spoke with patient's husbandry technician who will monitor her INR 3 times a week during dialysis and adjust accordingly. Patient doing well and with continued arm movements and pain. Patient tolerating just oral pain medication at this time and will be discharged to follow-up with her husbandry technician and reimbursement specialist as soon as possible. Patient explained to return to the ED if her symptoms are pain worsens. Patient also ex plained at length to inform patient's husbandry technician who manages her warfarin of any new medication when she is on warfarin as it is our belief right now that her fluconazole for her yeast infection likely interfered with her warfarin therapy causing the hemarthrosis. Patient will be discharged to follow-up with her husbandry technician and primary care to follow-up with cardiology as well. Discharge diagnosis Right shoulder effusion with hemarthrosis, resolving Supratherapeutic INR, resolved End-stage renal disease on hemodialysis, chronic Anemia, chronic History of aortic valve replacement with mechanical valve, chronic History of strep endocarditis, Home Meds Reported Medications Cinacalcet* (Sensipar*) 90 Mg Tablet, 90 MG PO DAILY, TAB 12/14/18 Amlodipine Besylate* (Norvasc*) 5 Mg Tablet, 5 MG PO BID, TAB 12/14/18 Trazodone Hcl* (Desyrel*) 50 Mg Tablet, 50 MG PO QHS, #30 TAB 12/14/18 Sevelamer Hcl* (Renagel*) 800 Mg Tablet, 3200 MG PO WITH MEALS, TAB 12/14/18 Discontinued Reported Medications Warfarin Sodium* (Coumadin*) 1 Mg Tablet, 3 MG PO DAILY, TAB 12/14/18 Discontinued Scripts Cetirizine Hcl* (Zyrtec*) 10 Mg Capsule, 10 MG PO DAILY, #14 TAB Prov:EDWINA SINGER MD 12/12/18 Follow-up Plan Follow-up with your husbandry technician as soon as possible, make sure to follow-up with your INR during dialysis sessions and speak to your husbandry technician regarding adjustments. Please follow-up with cardiology as well. As soon as possible. Primary Care Provider Care Physician No Primary Time spent on discharge: > 30 minutes Pending Labs Laboratory Tests Test 12/20/18 04:51 12/20/18 06:09 White Blood Count 7.8 10^3/ul (4.8-10.8) Red Blood Count 3.65 10^6/ul (4.20-5.40) Hemoglobin 10.8 g/dl (12.0-16.0) Hematocrit 32.5 % (37.0-47.0) Mean Corpuscular Volume 89.0 fl (82.0-101.0) Mean Corpuscular Hemoglobin 29.6 pg (29.0-33.0) Mean Corpuscular 33.2 g/dl (32.0-37.0) Hemoglobin Concent Red Cell Distribution Width 12.4 % (11.5-14.5) Platelet Count 206 10^3/UL (140-415) Mean Platelet Volume 10.7 fl (7.4-10.4) Immature Granulocytes % 0.300 % (0.001-0.429) Neutrophils % 65.1 % (39.0-77.0) Lymphocytes % 20.6 % (15.0-51.0) Monocytes % 11.2 % (0.0-11.0) Eosinophils % 2.4 % (0.0-7.0) Basophils % 0.4 % (0.0-2.0) Nucleated Red Blood Cells % 0.0 /100WBC (0.0-0.0) Immature Granulocytes # 0.020 10^3/ul (0.0-0.031) Neutrophils # 5.1 10^3/ul (1.6-7.5) Lymphocytes # 1.6 10^3/ul (0.8-2.9) Monocytes # 0.9 10^3/ul (0.3-0.9) Eosinophils # 0.2 10^3/ul (0.0-0.5) Basophils # 0.0 10^3/ul (0.0-0.1) Nucleated Red Blood Cells # 0.0 10^3/ul (0.0-0.0) Prothrombin Time 19.5 Sec (11.9-14.9) Prothrombin Time Ratio 1.5 INR International Normalized Ratio 1.64 Sodium Level 136 mmol/L (135-144) Potassium Level 5.1 mmol/L (3.5-5.1) Chloride Level 93 mmol/L (97-110) Carbon Dioxide Level 31 mmol/L (21-31) Anion Gap 12 (5-13) Blood Urea Nitrogen 46 mg/dl (7-20) Creatinine 8.74 mg/dl (0.44-1.00) Est Glomerular Filtrat Rate mL/min 6 mL/min (>60) Glucose Level 85 mg/dl (70-220) Calcium Level 8.9 mg/dl (8.4-10.2) Phosphorus Level 6.5 mg/dl (2.5-4.9) Magnesium Level 2.5 mg/dl (1.7-2.5) Lab Scanned Report BLOOD TRANSFUSION SHEREE RODRIGUEZ Dec 20, 2018 11:07
--- NOTE | 2018-12-20 11:07 | PDOCDIS ---
Discharge Instructions CONDITION [id number] Patient Condition: [id number] Stable ACTIVITY: [id number] Activity Restrictions: [id number] Slowly Increase Activity FOLLOW UP/APPOINTMENTS Follow-up Plan Follow-up with your director of marketing and promotions as soon as possible, make sure to follow-up with your INR during dialysis sessions and speak to your director of marketing and promotions regarding adjustments. Please follow-up with cardiology as well. As soon as possible. SHEREE RODRIGUEZ Dec 20, 2018 11:04
[2018-12-20] MEDS: ONDANSETRON 4 MG INJ IV PRN (13:42)
[2018-12-20 14:20] VITALS: BP 164/78; PULSE 80; RESP 18
[2018-12-20] MEDS ORDERED: WARFARIN 2 MG TAB PO SCH ×2 (17:00)
== END 2018-12-20 15:30 | disposition home or self-care (01) | DRG 553 ==
LOC: E/R 08:48 → 2NE 13:06 → OBSVTOIN 12-18 11:54 → 2NE 12-18 22:28
PROVIDERS: ADMIT Internal Medicine; ATTEND Internal Medicine
PROC: 30233N1 Transfusion of Nonautologous Red Blood Cells into Peripheral Vein, Percutaneous Approach (ICD-10-PCS; principal; 2018-12-19)
DX: M25.011 Hemarthrosis, right shoulder (principal); N18.6 End stage renal disease; I12.0 Hypertensive chronic kidney disease with stage 5 chronic kidney disease or end stage renal disease; Z99.2 Dependence on renal dialysis; D63.1 Anemia in chronic kidney disease; Z95.2 Presence of prosthetic heart valve; E83.52 Hypercalcemia; Z79.01 Long term (current) use of anticoagulants; E83.39 Other disorders of phosphorus metabolism; R79.1 Abnormal coagulation profile; Z86.79 Personal history of other diseases of the circulatory system
CPT/HCPCS: 36430; 73200; 80048; 83735; 84100; 85025; 85610; 85651; 85730; 86706; 86850; 86900; 86901; 86920; 87340; 90935; 93306; 96374; 96375; 96376; 97161; 97166; G0378; J1170; J1200; J2405; P9016